=== PATIENT | male | born 1965 | race Caucasian/White ===

== ENCOUNTER 2024-05-27 02:29 | Inpatient (IN) | payer BC, SELFPAY ==
[2024-05-26 23:06] VITALS: BP 139/90
[2024-05-26 23:08] VITALS: BP 130/90
--- NOTE | 2024-05-26 23:11 | ED.GENMED ---
History of Present Illness
General
Chief Complaint: Breathing Problem
Source: patient
Exam Limitations: none
Time Seen by Provider: 05/26/24 23:05
Nursing documentation reviewed up to this point in time: agreed with
History of Present Illness
History of Present Illness:
The patient is a 59-year-old man who reports that he underwent a total right shoulder replacement done at [facility] yesterday. He was kept overnight to control his pain. Patient reports that shortly after getting discharged home today,
he experienced shortness of breath. He reports initially he thought it was just it was a mucous plug but then it never got better. Patient reports he is coughing, wheezing and very short of breath. Patient reports he was intubated during the
procedure yesterday. He denies chest pain, calf pain and leg swelling. Patient denies any history of cardiac or lung disease. He reports he is a former smoker.
Past History
Past History
ED Past Medical History: None
ED Past Surgical History: None
Social History
Tobacco: Non-smoker
Alcohol: None
Drug: None
Personal:
Living: with family
Employment: Employed
Family History
Family History: CAD; Negative Diabetes, Hypertension, Early CAD, Asthma or Cancer
Review of Systems
Review of Systems
Allergies reviewed?: Yes
All Other Systems: ROS reviewed and negative except as documented in HPI and ROS
Constitutional: Reports no symptoms
EENT: Reports no symptoms
Respiratory: Reports cough and trouble breathing
ABD/GI: Reports no symptoms
: Reports no symptoms
Musculoskeletal: Reports no symptoms
Skin: Reports no symptoms
Neurological: Reports no symptoms
Endocrine: Reports no symptoms
Hematologic/Lymphatic: Reports no symptoms
Psychiatric: Reports no symptoms
Phy Exam
Physical Exam
Physical Exam:
Physical Exam
General: Patient appears anxious and tachypneic
Neck: supple. no meningeal signs. normal psoterior pharynx
Heart: Tachycardic
Lungs: Tachypneic, decreased breath sounds at bases bilaterally. Occasional wheeze
Abdomen: normal bowel sounds. not tender. no CVAT
Neuro: alert and oriented. no focal neurological deficits
Skin: no rash
Psychiatric: well kept. interactive and cooperative
Extremities: no edema. no calf tenderness. negative homans. good distal pulses
Scores
Heart Failure Risk
Heart Failure Risk Score: Not Applicable
Course
Orders/Labs/Results
Orders:
Orders
05/26/24 23:02
EKG [Electrocardiogram (*1)] Urgent
Reason for Study: Shortness of Breath
05/26/24 23:03
EKG- Treatment ONCE
05/26/24 23:11
CT Chest Pe Study Urgent
Comment:
Reason For Exam: surgery yesterday. SOB hypoxic
05/26/24 23:14
Complete Blood Count/With Diff Urgent
Comprehensive Metabolic Panel Urgent
NT-proBNP Urgent
Troponin I Urgent
05/27/24 01:23
Albuterol Sulfate [Ventolin Nebules] 15 mg INH R NOW STA
Dexamethasone Sod Phosphate [Decadron] 10 mg IV NOW STA
Abnormal Lab Results
05/26/24
23:14
RBC 3.95 L 10^6/uL
(4.70-6.10)
Hgb 11.6 L g/dL
(13.0-18.0)
Hct 33.3 L %
(39.0-52.0)
Abs Immat Gran (auto) 0.1 H 10^3/uL
(0-0.05)
Absolute Monos (auto) 1.2 H 10^3/uL
(0.1-0.6)
Monocytes % 11.9 H %
(1.7-9.3)
Sodium 134 L mmol/L
(135-145)
Chloride 95 L mmol/L
(98-107)
Glucose 106 H mg/dl
(70-99)
05/26/24 23:14
05/26/24 23:14
Vital Signs
Initial and Last Documented VS:
Initial Vital Signs
Pulse Resp BP Pulse Ox
118 30 139/90 79
05/26/24 23:06 05/26/24 23:06 05/26/24 23:06 05/26/24 23:06
Last Documented Vital Signs
Pulse Resp BP Pulse Ox
118 30 139/90 79
05/26/24 23:06 05/26/24 23:06 05/26/24 23:06 05/26/24 23:06
MDM/Problems Addressed
Differential Diagnosis Includes:
Acute pulmonary embolism, aspiration pneumonia, pneumonia
MDM/Problems Addressed:
Patient presents with acute shortness of breath, tachycardia and hypoxia
Chronic conditions affecting care: HTN
Acute Exacerbation and/or Progression of Chronic Illness:
Is acutely hypertensive, likely due to feeling short of breath
*Radiology
Radiology exam reviewed: radiology read reviewed
*Pulse Oximetry
Patient hypoxic: yes
*EKG
Interpreted by ED Provider?: Yes
Interpretation: abnormal
Comparison EKG: no changes
Rate: tachycardiac
Rhythm: sinus
[place]: normal axis
Interval: normal interval
QRS Pattern: normal QRS
Ischemia: non-specific ST changes
*Auditor Appraiser Interpretation
Rate: tachycardiac
Interpretation: abnormal
Rhythm: sinus
*Critical Care Note
Total Time (30-74mins, 75-104mins- exclusive of procedures): 35 minutes
comment:
35 minutes critical care given to the patient including reassessing his respiratory effort, lung sounds, tachycardia, reviewing his lab work and CT report as well as counseling the patient and his
Update Note
Update Note:
Patient is audibly more wheezy. I suspect aspiration pneumonitis or bronchospasm. There is no infiltrate on the patient's chest x-ray nor sign of PE.
ED Attending Note
-
Portions of this chart may have been created with voice recognition software.� Occasional wrong word or��sound alike� substitutions may have occurred due to the inherent limitations of voice recognition software.
Discharge Plan
Departure
Patient Disposition: Admit
Date of Disposition: 05/27/24
Time of Disposition:
Admit to: Telemetry
Presentation/result/management discussed w/ accepting MD/DO: Hospitalist
Patient with high blood pressure during this ER visit?: Yes
Condition: Fair
Covid-19: Not Applicable
Discharge Problem:
Acute hypoxic respiratory distress
Prescriptions:
No Action
multivitamin [Oyo-Bkrxnn-Laanx] 1 EACH tablet
1 ea PO DAILY
fenofibrate nanocrystallized 145 MG tablet
145 mg PO DAILY
valsartan [Diovan] 160 MG capsule
160 mg PO DAILY
atorvastatin 20 MG tablet
20 mg PO HS
Patient Comments:
02/20/17 Per pharmay this is half a tablet (10mg) daily but hes been taking a whole tablet
cetirizine 10 MG tablet
10 mg PO DAILYPRN PRN (Reason: allergies)
meclizine 25 MG tablet
25 mg PO TIDPRN PRN (Reason: vertigo)
labetalol 100 MG tablet
100 mg PO BID
duloxetine 30 MG capsule,delayed release(DR/EC)
30 mg PO BID
tamsulosin 0.4 MG capsule
0.4 mg PO HS
diphenhydramine HCl 25 MG strip
25 mg PO HS PRN (Reason: sleep)
ondansetron HCl 4 MG tablet
4 mg sublingual Q6H PRN (Reason: nausea)
sumatriptan succinate 50 MG tablet
50 mg PO DAILY PRN (Reason: migraine)
acetaminophen [Tylenol Arthritis Pain] 650 MG tablet extended release
1,300 mg PO Q8H PRN (Reason: pain)
ascorbic acid (vitamin C) [Vitamin C] 500 MG tablet
500 mg PO DAILY
omeprazole-sodium bicarbonate [Zegerid] 1 EACH capsule
2 cap PO
cephalexin 500 MG capsule
500 mg PO QID 4 Days 0RF
oxycodone-acetaminophen 5 MG/325 MG tablet
2 tab PO Q6HPRN PRN (Reason: pain) 14 Days 0RF
Rx Instructions:
Take 2 tablets four times a day, every 6 hours for pain
diazepam [Valium] 10 MG tablet
5 mg PO TID 14 Days Qty: 40 0RF
Referrals:
Jen Mohamud MD [Family Provider] -
Discharge Date and Time
Print Language: PASHTO
[2024-05-26 23:29] LABS: % Basophils 0.7 % (0-2); % Eosinophils 2.9 % (0-6); % Immature Granulocytes 0.5 % (0-0.5); % Lymphocytes 22.3 % (20.5-51.1); % Monocytes 11.9 % (1.7-9.3); % Neutrophils 61.7 % (42.2-75.2); Absolute Basophils 0.1 10^3/uL (0-0.2); Absolute Eosinophils 0.3 10^3/uL (0-0.7); Absolute Immature Granulocytes 0.1 10^3/uL (0-0.05); Absolute Lymphocytes 2.3 10^3/uL (1.2-3.4); Absolute Monocytes 1.2 10^3/uL (0.1-0.6); Absolute Neutrophils 6.3 10^3/uL (1.4-6.5); Hematocrit 33.3 % (39.0-52.0); Hemoglobin 11.6 g/dL (13.0-18.0); Mean Corp Hgb Conc. 34.8 g/dL (33.0-37.0); Mean Corpuscular Hgb 29.4 pg (27.0-31.0); Mean Corpuscular Volume 84.3 fL (80.0-94.0); Mean Platelet Volume 9.6 fL (7.4-10.4); Nucleated Red Blood Cells % 0 % (-); Platelet Count 222 10^3/uL (130-400); Red Blood Cell Count 3.95 10^6/uL (4.70-6.10); Red Cell Dist. Width 14.3 % (11.5-14.5); White Blood Cell Count 10.1 10^3/uL (4.8-10.8)
[2024-05-26 23:37] LABS: ALT (SGPT) 29 U/L (0-50); AST (SGOT) 38 U/L (17-59); Albumin 4.6 g/dl (3.5-5.0); Alkaline Phosphatase 75 U/L (38-126); Blood Urea Nitrogen 18 mg/dl (9-20); Calcium 9.3 mg/dl (8.4-10.2); Carbon Dioxide 26 mmol/L (22-30); Chloride 95 mmol/L (98-107); Glucose 106 mg/dl (70-99); Potassium 4.2 mmol/L (3.5-5.1); Sodium 134 mmol/L (135-145); Total Bilirubin 0.6 mg/dl (0.2-1.3); Total Protein 6.7 g/dl (6.3-8.2); eGFR > 60.00
[2024-05-26 23:45] LABS: NT-proBNP 191 pg/ml; Troponin I < 0.012 ng/ml
[2024-05-27] VITALS (9 sets, daily range): BP systolic 128–163; BP diastolic 74–96; BMI 34.7
[2024-05-27] MEDS: DECADRON 10 MG IV (01:50)
[2024-05-27] MEDS: VENTOLIN NEBULES 15 MG INH (01:51)
--- NOTE | 2024-05-27 02:24 | HPS.HSE ---
Family Physician
-
Family Physician: Jen Mohamud
Chief Complaint
-
Shortness of breath
History of Present Illness
This is a 59-year-old male who has a past medical history of hypertension, obesity, GERD and BPH presenting to the emergency department 1-1/2 days after shoulder surgery for acute onset dyspnea on exertion and shortness of breath.
Patient reported being in usual state of health prior to surgery. Did not sleep well prior to his surgery. He had a surgery on Thursday on the right shoulder at [facility]. He is status post total right shoulder arthroplasty.
Patient reported the surgery was uneventful. He did have full anesthesia for the procedure. The patient stayed overnight without any difficulties and was started on aspirin 81 mg twice daily for DVT prophylaxis. Other than routine pain
medications at the send he denied any other new medications.
Patient reported started to feel short of breath on arrival home. Symptoms became much worse on the afternoon of the following day. He reported dyspnea on exertion, wheezing and a nonproductive cough. He denied orthopnea or PND. He denies any
lower extremity swelling. He denies any calf tenderness. He denied chest pain palpitations lightheadedness or dizziness. He denied any worsening of his GERD. He denies any new rash.
Patient reports he is a former smoker who quit in 2006. Denies any prior history of asthma. Denies prior history of COPD.
On arrival in the emergency department the patient was afebrile, he was hemodynamically stable with a blood pressure 140/90 however he was tachypneic to 38 with a initial pulse ox of 80%. ECG showed sinus rhythm at a rate of 99 without any acute
ST-T wave changes. Troponin negative. He had a CT PE study immediately which showed no central PE but bilateral atelectasis with a large area of atelectasis in the right lower lobe.
Medical History
Past Medical History
Past Medical History: Reports GERD and HTN
Additional Past Medical History:
BPH
Past Surgical History: Reports Orthopedic (Status post right total shoulder arthroplasty, history of and all Arnold Chiari malformation status post craniectomy, history of L2-L4 laminectomy and fusion)
Social History
Tobacco: Former Smoker
Alcohol: Occasional
Drug: None
Personal:
Living: With Family
Employment: Employed
Family History
Family History: Not pertinent
Allergies / Home Medications
Allergies reflects when Allergies were last updated in [employer].
Home Medications with original date entered in [employer]
Allergy/Medication List:
Allergies
Allergy/AdvReac Type Severity Reaction Status Date / Time
codeine Allergy nausea Verified 06/10/17 08:34
nka Allergy NAUSEA Uncoded 06/10/17 13:38
WITH
CODEINE
Home Medications
valsartan 160 mg capsule (Diovan) 160 mg PO DAILY 02/20/17
tamsulosin 0.4 mg capsule 0.4 mg PO HS 02/21/17
Review of Systems
-
History Source: Patient
Constitutional: Reports No Symptoms
EENT: Reports No Symptoms
Respiratory: Reports Cough and Trouble Breathing
Cardiac: Reports No Symptoms
Abdomen/GI: Reports No Symptoms
: Reports No Symptoms
Musculoskeletal: Reports No Symptoms
Neurological: Reports No Symptoms
Endocrine: Reports No Symptoms
Hematologic/Lymphatic: Reports No Symptoms
Psych: Reports No Symptoms
Physical Exam
Vital Signs
Vital Signs
Pulse Resp BP Pulse Ox
118 30 139/90 79
05/26/24 23:06 05/26/24 23:06 05/26/24 23:06 05/26/24 23:06
Physical Exam
General: Well Developed, Well Nourished and Respiratory Distress
HEENT: NormoCephalic, Anicteric, Moist mucous membranes and Atraumatic
Respiratory: Wheezes and Accessory Resp Muscle Use
Cardiac: S1/S2, Regular Rhythm and Tachycardia
Breast: Deferred by me
GI: Soft, Non Tender and Non Distended
Rectal: Deferred by Provider
Genito-urinary: Deferred by me
Musculoskeletal: No Clubbing, No Cyanosis and No Edema
Skin: Warm
Neuro: AO x 3
Hematologic/Lymphatic: No Lymphadenopathy
Psych: Calm
Laboratory Results
-
05/26/24 23:14
05/26/24 23:14
Laboratory Results
Total Bilirubin 0.6 mg/dl (0.2-1.3) 05/26/24 23:14
AST 38 U/L (17-59) 05/26/24 23:14
ALT 29 U/L (0-50) 05/26/24 23:14
Alkaline Phosphatase 75 U/L (38-126) 05/26/24 23:14
Troponin I < 0.012 ng/ml 05/26/24 23:14
Data Reviewed
-
CT Scan: Report Reviewed by me
Medical Tests (Nuc Med, Echo, EKG etc): Image Personally Visualized and interpreted
Lab Data: Labs Reviewed by me
Old Records: Reviewed
Impression/Plan
-
IMPRESSION:
59-year-old with history of hypertension, BPH and GERD who presents to the emergency department postop day #2 status post right total shoulder arthroplasty with wheezing shortness of breath and hypoxia.
PLAN:
1.Hypoxic respiratory distress -acute hypoxic respiratory distress with significant reactive airways component and bilateral atelectasis with large years right lower lobe atelectasis suggestive of possible aspiration. Patient without history of
asthma and no known history of COPD. No current smoker. Only new exposure is aspirin but patient had been on aspirin in the past without any reactive components. No fevers leukocytosis. No obvious consolidation per CT scan. No PE on the CT scan.
- admit to med/surg for acute asthmatic bronchitis 2/2 aspiration
- start solumedrol 40mg q 12
- albuterol q 3 hours prn and duonebs q 6 standing
- cough suppression and antiemetics
- oxygen to keep sat > 93% and to reduce work of breathing.
- start abx if febrile or worsening hypoxia
- incentive spirometry
- no h/o jeremias
- rule out covid 19
2. HTN - Hemodynamically stable.
- continue valsartan
3. GERD
- ppi iv ppx
4. BPH
- continue tamsulosin
5. Shoulder surgery
- maintain sling
- pain control
- outpatient f/u
DVT PPX - lovenox sq
Code Status - Full
[2024-05-27 07:24] LABS: COVID-19 Antigen Negative (Negative)
[2024-05-27] MEDS: DIOVAN 160 MG PO (07:28)
[2024-05-27] MEDS: PROTONIX IV 40 MG IV (07:29)
[2024-05-27] MEDS: NSS (PRESERVATIVE FREE) 10 ML IV (07:30)
[2024-05-27] MEDS: DUONEB 3 ML INH ×4 (07:30→19:10)
[2024-05-27] MEDS: MORPHINE SULFATE 2 MG IV (08:59)
--- NOTE | 2024-05-27 09:32 | W.PN.HOSP.TC ---
Today's Communication/Plan
-
Pulmonary consult. Resume pain control.
Assessment / Plan
Assessment / Plan
Physical Exam
General: Acutely ill but no respiratory Distress or distress due to right shoulder postop
HEENT: NormoCephalic, Anicteric, Moist mucous membranes and Atraumatic
Respiratory: Wheezes and Accessory Resp Muscle Use
Cardiac: S1/S2, Regular Rhythm and Tachycardia
Breast: Deferred by me
GI: Soft, Non Tender and Non Distended
Rectal: Deferred by Provider
Genito-urinary: Deferred by me
Musculoskeletal: Right postop shoulder findings. No Clubbing, No Cyanosis and No Edema
Skin: Warm
Neuro: AO x 3
Hematologic/Lymphatic: No Lymphadenopathy
Psych: Calm
A/P:
1.Hypoxic respiratory distress -acute hypoxic respiratory distress with significant reactive airways component and bilateral atelectasis with large years right lower lobe atelectasis suggestive of possible aspiration. Patient without history of
asthma and no known history of COPD. No current smoker. Only new exposure is aspirin but patient had been on aspirin in the past without any reactive components. No fevers leukocytosis. No obvious consolidation per CT scan. No PE on the CT scan.
-Etiology likely atelectasis in the setting of recent surgery. Pulmonary consulted. Discontinue IV steroids. Considering antibiotics but after discussion with patient he would like to hold off.
- albuterol q 3 hours prn and duonebs q 6 standing
- cough suppression and antiemetics
- oxygen to keep sat > 93% and to reduce work of breathing.
- start abx if febrile or worsening hypoxia
- incentive spirometry
- no h/o jeremias
- rule out covid 19
2. HTN - Hemodynamically stable.
- continue valsartan
3. GERD
- ppi iv ppx
4. BPH
- continue tamsulosin
5. Recent shoulder surgery
- maintain sling
- pain control not sufficient so placed him back on his home regimen and will reevaluate. Also start bowel regimen.
- outpatient f/u
DVT PPX - lovenox sq
Code Status - Full
Total time spent on today's encounter was 52 minutes which included time spent in counseling the patient/family regarding diagnosis and treatment plan as listed above, goals of care, and symptom management. Case was discussed with nursing staff,
specialists, and care coordinators/case management. All labs and imaging personally reviewed by me. Remainder the time spent in detailed review of previous records, lab data, imaging, and other medical provider documentation.
Anticipated Discharge: 24 - 48 hours
Subjective/Interval History
-
Date of Service: May 27, 2024
Patient with less shortness of breath. Still requiring oxygen. No chest pain.
Objective Data
-
Labs:
Laboratory Results
05/26/24
23:14
WBC 10.1
Hgb 11.6 L
Hct 33.3 L
Plt Count 222
Sodium 134 L
Potassium 4.2
Chloride 95 L
Carbon Dioxide 26
BUN 18
Creatinine 1.0
Glucose 106 H
Calcium 9.3
Total Bilirubin 0.6
AST 38
ALT 29
Alkaline Phosphatase 75
Vital Signs:
Vital Signs
Pulse Resp BP Pulse Ox
107 17 144/96 95
05/27/24 09:00 05/27/24 09:00 05/27/24 09:00 05/27/24 09:00
--- NOTE | 2024-05-27 10:23 | CON.PUL ---
Consultation
Consultation Request
Date/Time Consultation Requested: 05/27/2024-9:30 AM
Date/Time Consultation Performed: 05/27/2024-10 AM
Requesting Provider: Hospitalist
Performing Provider: Dr. Moy
Reason for Consultation: Shortness of breath
Medical History
-
Chief Complaint: Shortness of breath
History of Present Illness:
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 He feels
improved on oxygen in the emergency room. He states that he had surgery and went home and had fairly sudden onset shortness of breath, dyspnea exertion with climbing stairs, and had expected right shoulder pain and swelling. He did not have any
lower extremity swelling. He lied down in bed and immediately had severe shortness of breath and thought about calling 911. He drove to the emergency room because his pulse ox was 73% at home. He checked a pulse ox on his it was 99%. He
also had some tachycardia. He currently denies any chest pain, chest tightness, wheezing, pleurisy, chest congestion, productive cough, reflux, abdominal pain or leg swelling. Denies a history of obstructive sleep apnea.
Past Medical History
Past Medical History: None (Hypertension. GERD. BPH. Former [id number]-year quit 2006. Obesity. Right shoulder arthroplasty. Arnold Chiari malformation status post craniectomy. L2-L5 laminectomy and fusion.)
Social History
Tobacco: Former Smoker ([id number] quit 2006)
Alcohol: Occasional
Drug: None
Personal:
Living: With Family
Occupational Exposures: No known asbestos exposure
Environmental Exposures: No known tuberculosis exposure
Family History
Family History: Reviewed & Not Pertinent
Allergies / Home Medications
Allergies
Allergy/AdvReac Type Severity Reaction Status Date / Time
codeine Allergy nausea Verified 06/10/17 08:34
nka Allergy NAUSEA Uncoded 06/10/17 13:38
WITH
CODEINE
Home Medications
�Medication �Instructions �Recorded �Confirmed �Last Taken �Type
atorvastatin 20 mg tablet 20 mg PO HS 02/20/17 05/27/24 06/09/17 19:00 History
cetirizine 10 mg tablet 10 mg PO DAILYPRN PRN allergies 02/20/17 05/27/24 06/08/17 09:00 History
meclizine 25 mg tablet 25 mg PO DAILYPRN PRN vertigo 02/20/17 05/27/24 06/07/17 History
tamsulosin 0.4 mg capsule 0.4 mg PO HS 02/21/17 05/27/24 06/09/17 19:00 History
acetaminophen 650 mg 1,300 mg PO Q8H pain 06/02/17 05/27/24 06/09/17 16:00 History
tablet,extended release (Tylenol
Arthritis Pain)
ascorbic acid (vitamin C) 500 mg 500 mg PO DAILY 06/02/17 05/27/24 06/03/17 09:00 History
tablet (Vitamin C)
amlodipine 10 mg tablet 10 mg PO NOON 05/27/24 05/27/24 Unknown History
aspirin 81 mg chewable tablet 81 mg PO BID 05/27/24 05/27/24 Unknown History
bupropion HCl 150 mg 24 hr tablet, 150 mg PO DAILY 05/27/24 05/27/24 Unknown History
extended release
cyclobenzaprine 10 mg tablet 10 mg PO HS 05/27/24 05/27/24 Unknown History
duloxetine 60 mg capsule,delayed 60 mg PO DAILY 05/27/24 05/27/24 Unknown History
release
famotidine 20 mg tablet (Pepcid) 20 mg PO BID 05/27/24 05/27/24 Unknown History
ibuprofen 200 mg tablet 600 mg PO Q6H 05/27/24 05/27/24 Unknown History
nxyaxwua-xhl-gugmb acid 0.4 1 tab PO DAILY 05/27/24 05/27/24 Unknown History
mg-lycopene 300 mcg-lutein 250 mcg
tablet (Centrum Silver)
omega 8-sea-ugb-fish oil 1,000 mg 1 cap PO TID 05/27/24 05/27/24 Unknown History
(120 mg-180 mg) capsule (Fish Oil)
omeprazole 20 mg-sodium 1 cap PO BID 05/27/24 05/27/24 Unknown History
bicarbonate 1.1 gram capsule
(Zegerid OTC)
oxycodone-acetaminophen 7.5 mg-325 1 tab PO BIDPRN PRN moderate pain 05/27/24 05/27/24 Unknown History
mg tablet
pregabalin 150 mg capsule 150 mg PO TID 05/27/24 05/27/24 Unknown History
sennosides 8.6 mg tablet (senna) 17.2 mg PO BID 05/27/24 05/27/24 Unknown History
valsartan 160 mg tablet 160 mg PO BID 05/27/24 05/27/24 Unknown History
Review of Systems
-
Unable to Obtain full review of systems at this time due to: Other (Per HPI)
Vitals / Labs / Diagnostic Testing
Vital Signs
Pulse Resp BP Pulse Ox
107 17 144/96 95
05/27/24 09:00 05/27/24 09:00 05/27/24 09:00 05/27/24 09:00
Lab Data
05/26/24 23:14
05/26/24 23:14
Diagnostic Testing:
Physical Exam
-
Exam:
Well-nourished and well-developed in no apparent distress
HEENT-atraumatic, normocephalic
Neck-supple, no JVD, no bruit
Heart-regular rate and rhythm-, no murmurs rubs or gallops, no increased P2 or RV heave
Chest-clear to auscultation, no wheezes, crackles
Back-no tenderness
Abdomen-soft, nontender, nondistended, no hepatosplenomegaly
Extremities-no cyanosis, clubbing, edema and good peripheral pulses, negative Homans' sign
Integument-intact, no rashes, lesions or ecchymosis
Neurology-alert and oriented, nonfocal motor and sensory exam
Assessment
-
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
Acute hypoxemia possibly related to reactive airway/asthma with basilar atelectasis-negative PE, no history of asthma
Recent right shoulder arthroplasty
Mild panxod-omrwfdknzo-yubvlqesdf 11.6
Mild hyperglycemia
Conditions present prior to admission:
Hypertension.
GERD.
BPH.
Former pwdhzr-99-wuwm-year quit 2006.
Obesity.
Right shoulder arthroplasty.
Arnold Chiari malformation status post craniectomy. L2-L5 laminectomy and fusion.
Plan
Respiratory decompensation likely related to atelectasis of and possibly underlying reactive airway/asthma exacerbation
Supplemental oxygen as needed
Incentive spirometry
Nebulizers
Solu-Medrol initiated
Mucus clearing devices
Consider CPAP temporarily to help with tracheobronchial tree stenting/atelectasis-could be worked up for sleep apnea as an outpatient
Aspiration precautions
Follow-up radiographically to ensure atelectasis and elevated hemidiaphragm resolved
Analgesia per primary service-requesting Percocet and morphine
DVT prophylaxis-on Lovenox
Early nutrition
Early mobilization
Reviewed with nursing
Consider outpatient sleep apnea evaluation
Diagnostic data:
Chest x-ray 12/20/2008-NAD
CT chest 05/26/2024-no central pulmonary emboli, very low lung volumes, partial atelectasis right lower lobe and right middle lobe, moderate elevation right hemidiaphragm
Data Reviewed
-
EKG: Report reviewed by me
Radiology: Image personally visualized and interpreted and Report reviewed by me
CT Scan: Report reviewed by me
Medical Tests (Nuc Med, Echo etc): Report reviewed by me
Labs: Labs reviewed by me
Old Records: Reviewed
Total Time Spent with Patient (in minutes): 65
[2024-05-27] MEDS: PERCOCET 5/325 1 TABLET PO (11:34)
[2024-05-27] MEDS: NORVASC 10 MG PO (12:15)
[2024-05-27] MEDS: SOLU-MEDROL PF 40 MG IV (13:48)
[2024-05-27] MEDS: WELLBUTRIN XL (24 hour extended release) 150 MG PO (14:33)
[2024-05-27] MEDS: CYMBALTA DELAYED RELEASE 60 MG PO (14:33)
[2024-05-27] MEDS: MIRALAX 17 GRAMS PO (14:35)
[2024-05-27] MEDS: SENOKOT-S 1 TABLET PO ×2 (14:35→20:17)
[2024-05-27] MEDS: TYLENOL 325 MG PO ×2 (15:46→21:31)
[2024-05-27] MEDS: ROXICODONE 10 MG PO ×2 (15:50→21:31)
[2024-05-27] MEDS: LYRICA 150 MG PO ×2 (16:49→21:30)
[2024-05-27] MEDS: TYLENOL 650 MG PO (18:32)
[2024-05-27] MEDS: LOVENOX 40 MG SC (18:35)
[2024-05-27] MEDS: PROTONIX 40 MG PO (20:17)
[2024-05-27] MEDS: PEPCID 20 MG PO (20:17)
[2024-05-27] MEDS: LIPITOR 20 MG PO (21:30)
[2024-05-27] MEDS: FLEXERIL 10 MG PO (21:30)
[2024-05-27] MEDS: FLOMAX 0.4 MG PO (21:30)
[2024-05-28] MEDS: TYLENOL 325 MG PO ×2 (06:07→12:16)
[2024-05-28] MEDS: ROXICODONE 10 MG PO ×2 (06:08→12:16)
[2024-05-28] MEDS: DUONEB 3 ML INH (07:23)
[2024-05-28 07:57] VITALS: BP 152/90
[2024-05-28 08:25] LABS: % Basophils 0.2 % (0-2); % Immature Granulocytes 0.6 % (0-0.5); % Lymphocytes 5.4 % (20.5-51.1); % Monocytes 7.7 % (1.7-9.3); % Neutrophils 86.1 % (42.2-75.2); Absolute Immature Granulocytes 0.1 10^3/uL (0-0.05); Absolute Lymphocytes 0.7 10^3/uL (1.2-3.4); Absolute Monocytes 1.1 10^3/uL (0.1-0.6); Absolute Neutrophils 11.7 10^3/uL (1.4-6.5); Hematocrit 31.6 % (39.0-52.0); Hemoglobin 11.4 g/dL (13.0-18.0); Mean Corp Hgb Conc. 36.1 g/dL (33.0-37.0); Mean Corpuscular Hgb 29.8 pg (27.0-31.0); Mean Corpuscular Volume 82.5 fL (80.0-94.0); Mean Platelet Volume 11.5 fL (7.4-10.4); Nucleated Red Blood Cells % 0 % (-); Platelet Count 207 10^3/uL (130-400); Red Blood Cell Count 3.83 10^6/uL (4.70-6.10); Red Cell Dist. Width 14.2 % (11.5-14.5); White Blood Cell Count 13.6 10^3/uL (4.8-10.8)
--- NOTE | 2024-05-28 08:44 | W.PN.HOSP.TC ---
Today's Communication/Plan
-
Discharge planning today
Assessment / Plan
Assessment / Plan
Physical exam:
General: Well Developed, Well Nourished and No Apparent Distress
HEENT: Normocephalic, Atraumatic and Moist Mucous Membranes
Respiratory: Clear to Auscultation; Negative Wheezes, Rales or Rhonchi
Cardiac: Regular Rhythm and S1/S2
GI: Soft, Nontender and Nondistended
Musculoskeletal: Right shoulder sling. No Clubbing, No Cyanosis and No Edema
Neuro: Awake, Alert and Oriented
Psych: Calm
A/P:
1.hypoxia related to prior shoulder surgery--> back on room air after incentive spirometry and mobilization with PT. Appreciate pulmonary input
2. HTN -continue home meds
3. GERD-continue home right
4. BPH-Home regimen
5. Recent shoulder surgery-continue outpatient pain control
6. Hyperkalemia from hemolysis-repeated potassium and without any variations to potassium back to normal at 3.9
7. Hyponatremia-resolved
8. Fhexpk-oppjin-rd as outpatient. No signs of bleeding
DVT PPX - lovenox sq
Code Status - Full
Anticipated Discharge: Today
Subjective/Interval History
-
Date of Service: May 28, 2024
Patient doing well today. Back to room air today since last evening. No chest pain or shortness of breath
Objective Data
-
Labs:
Laboratory Results
05/28/24
06:00
WBC 13.6 H
Hgb 11.4 L
Hct 31.6 L
Plt Count 207
Sodium Pending
Potassium Pending
Chloride Pending
Carbon Dioxide Pending
BUN Pending
Creatinine Pending
Glucose Pending
Calcium Pending
Vital Signs:
Vital Signs
Temp Pulse Resp BP Pulse Ox
98.3 F 101 18 152/90 96
05/28/24 07:57 05/28/24 07:57 05/28/24 07:57 05/28/24 07:57 05/28/24 07:57
I&O
05/27/24 05/28/24 05/29/24
06:59 06:59 06:59
Intake Total 0 / 0
Balance 0 / 0
[2024-05-28 08:59] LABS: Blood Urea Nitrogen 15 mg/dl (9-20); Calcium 9.4 mg/dl (8.4-10.2); Carbon Dioxide 17 mmol/L (22-30); Chloride 105 mmol/L (98-107); Estimated Creatinine Clearance > 125 ml/min; Glucose 107 mg/dl (70-99); Potassium 5.7 mmol/L (3.5-5.1); Sodium 140 mmol/L (135-145); eGFR > 60.00
[2024-05-28 09:36] VITALS: BP 155/94; PULSE 109; O2SAT 97
--- NOTE | 2024-05-28 09:48 | PTOTSP ---
Patient presents S/P R TSA with subsequent SOB after DC from that procedure. Patient is feeling better today in regards to symptoms. He demonstrates I with all functional mobility. He was able to complete a full flight of stairs and curb with
safety. He increased ambulation distance without drop in O2 sats afterwards. At this time, patient demonstrates no skilled inpatient needs. Would benefit from OP therapy for shoulder when appropriate orthopedically. Will sign off. Please
reconsult if situation changes.
[2024-05-28] MEDS: CYMBALTA DELAYED RELEASE 60 MG PO (10:00)
[2024-05-28] MEDS: DIOVAN 160 MG PO (10:00)
[2024-05-28] MEDS: MIRALAX PO (10:01)
[2024-05-28] MEDS: LOW STRENGTH ASPIRIN 81 MG PO (10:01)
[2024-05-28] MEDS: PEPCID 20 MG PO (10:01)
[2024-05-28] MEDS: LYRICA 150 MG PO (10:01)
[2024-05-28] MEDS: PROTONIX 40 MG PO (10:02)
[2024-05-28] MEDS: SENOKOT-S 1 TABLET PO (10:02)
[2024-05-28] MEDS: FLUSH (NSS) 1 FLUSH IV (10:02)
[2024-05-28] MEDS: WELLBUTRIN XL (24 hour extended release) 150 MG PO (10:02)
[2024-05-28] MEDS: TYLENOL 650 MG PO (10:08)
[2024-05-28 11:35] LABS: Blood Urea Nitrogen 18 mg/dl (9-20); Calcium 9.3 mg/dl (8.4-10.2); Carbon Dioxide 28 mmol/L (22-30); Chloride 100 mmol/L (98-107); Estimated Creatinine Clearance > 125 ml/min; Glucose 135 mg/dl (70-99); Potassium 3.9 mmol/L (3.5-5.1); Sodium 139 mmol/L (135-145); eGFR > 60.00
--- NOTE | 2024-05-28 11:42 | W.DCSUMMARY ---
Discharge Summary
Discharge Data
Date of Admission: 05/27/24
Date of Discharge: 05/28/24
-
Pending Results: No
Hospital Course
Patient 59 years old male with history of hypertension, obesity, GERD, BPH, recent right shoulder surgery presented to the hospital with shortness of breath and hypoxia. Patient was placed on supplemental oxygen. He had a CTA of the chest no
evidence of PE. Pulmonary consulted. He was placed on supplemental oxygen. Patient was placed on incentive spirometry and physical therapy evaluated the patient. Initially placed on steroids but discontinued. There was also some discussions
about antibiotics but he did not require such. Patient did well rest of hospital stay. He was able to come off oxygen and oxygenating well on room air. He is afebrile and hemodynamically stable. He feels back to his baseline and eager to go home
today. He is going to be discharged in relatively stable condition today.
Discharge duration: 35 minutes
Discharge Plan
-
Patient Disposition: Home (Routine Discharge)
Discharge Diagnosis/Procedures: Hypoxia likely related to atelectasis. Recent shoulder surgery.
Diet: Low Cholesterol
Activity: As tolerated
Blood Work: Please PCP to order CBC, BMP within 1 week
Referrals:
Jen Mohamud MD [Family Provider] - in less than 1 week
Adi Moy MD [Active] - in two to four weeks
Prescriptions:
Continued
atorvastatin 20 MG tablet
20 mg PO HS
Patient Comments:
02/20/17 Per pharmay this is half a tablet (10mg) daily but hes been taking a whole tablet
cetirizine 10 MG tablet
10 mg PO DAILYPRN PRN (Reason: allergies)
meclizine 25 MG tablet
25 mg PO DAILYPRN PRN (Reason: vertigo)
tamsulosin 0.4 MG capsule
0.4 mg PO HS
acetaminophen [Tylenol Arthritis Pain] 650 MG tablet extended release
1,300 mg PO Q8H
ascorbic acid (vitamin C) [Vitamin C] 500 MG tablet
500 mg PO DAILY
cyclobenzaprine 10 mg Tablet
10 mg PO HS
sennosides [senna] 8.6 mg Tablet
17.2 mg PO BID
famotidine [Pepcid] 20 mg Tablet
20 mg PO BID
amlodipine 10 mg Tablet
10 mg PO NOON
ibuprofen 200 mg Tablet
600 mg PO Q6H
aspirin 81 mg Tablet,Chewable
81 mg PO BID
valsartan 160 mg Tablet
160 mg PO BID
bupropion HCl 150 mg Tablet Extended Release 24 Hr
150 mg PO DAILY
duloxetine 60 mg Capsule,Delayed Release(Dr/Ec)
60 mg PO DAILY
Centrum Silver 0.4 mg-300 mcg- 250 mcg Tablet
1 tab PO DAILY
pregabalin 150 mg Capsule
150 mg PO TID
omega 8-dms-ias-fish oil [Fish Oil] 1,000 (120-180) mg Capsule
1 cap PO TID
omeprazole-sodium bicarbonate [Zegerid OTC] 20-1.1 mg-gram Capsule
1 cap PO BID
oxycodone-acetaminophen [Percocet] 10-325 mg Tablet
1 tab PO Q6H PRN (Reason: mod-severe )
Discharge Orders:
Discharge Patient (As Directed); Ordered 05/28/24
Ordered By: Shakeel Bennett
Discharge Date and Time
Discharge Date/Time: 05/28/24 15:42
Print Language: GIBRALTARIAN
[2024-05-28] MEDS: DUONEB INH (11:58)
[2024-05-28] MEDS: NORVASC 10 MG PO (12:16)
--- NOTE | 2024-05-28 15:26 | PTCARENOTE ---
Pt left hospital without discharge paperwork. Left 2 messages on pt's voicemail requesting to go over paperwork with pt either over the phone and or if he could come back to the hospital to pickup paperwork. Will mail discharge paperwork to pt. Pt
has not responded to voicemails.
== END 2024-05-28 15:42 | disposition home or self-care (01) | DRG 206 ==
LOC: 4 EAST ACU 02:29
PROVIDERS: ADMITTING PHYSICIAN Internal Medicine; ATTENDING PHYSICIAN Hospitalist; CONSULT PHYSICIAN Internal Medicine Critical Care Medicine; EMERGENCY PHYSICIAN Emergency Medicine; FAMILY PHYSICIAN Internal Medicine
DX: J95.89 Other postprocedural complications and disorders of respiratory system, not elsewhere classified (principal); J98.11 Atelectasis; J45.901 Unspecified asthma with (acute) exacerbation; E87.1 Hypo-osmolality and hyponatremia; R06.03 Acute respiratory distress; R09.02 Hypoxemia; E87.5 Hyperkalemia; I10 Essential (primary) hypertension; D64.9 Anemia, unspecified; R73.9 Hyperglycemia, unspecified; E66.9 Obesity, unspecified; K21.9 Gastro-esophageal reflux disease without esophagitis; N40.0 Benign prostatic hyperplasia without lower urinary tract symptoms; Y84.8 Other medical procedures as the cause of abnormal reaction of the patient, or of later complication, without mention of misadventure at the time of the procedure; Y92.9 Unspecified place or not applicable; Q07.00 Arnold-Chiari syndrome without spina bifida or hydrocephalus; Z88.5 Allergy status to narcotic agent; Z96.611 Presence of right artificial shoulder joint; Z87.891 Personal history of nicotine dependence; Z82.49 Family history of ischemic heart disease and other diseases of the circulatory system
CPT/HCPCS: 71275; 80048; 80053; 83880; 84484; 85025; 87811; 93005; 94640; 96374; 97116; 97161; 99291; Q9967

== ENCOUNTER → 2024-11-15 17:54 | Outpatient (REF) | payer BC, SELFPAY | LOC: MRI 17:54 | PROVIDERS: ATTENDING PHYSICIAN Physician Assistant Medical; FAMILY PHYSICIAN Internal Medicine | DX: M54.50 Low back pain, unspecified (principal); Z98.1 Arthrodesis status; M54.16 Radiculopathy, lumbar region; M51.26 Other intervertebral disc displacement, lumbar region | CPT/HCPCS: 72148 ==

== ENCOUNTER → 2025-01-29 12:11 | Outpatient (REF) | payer BC, SELFPAY | LOC: PAVMRI 12:11 | PROVIDERS: ATTENDING PHYSICIAN Orthopaedic Surgery Orthopaedic Surgery of the Spine; FAMILY PHYSICIAN Internal Medicine | DX: M48.02 Spinal stenosis, cervical region (principal) | CPT/HCPCS: 72141 ==

== ENCOUNTER → 2025-02-01 13:36 | Outpatient (REF) | payer BC, SELFPAY | LOC: HWRAD 13:36 | PROVIDERS: ATTENDING PHYSICIAN Physician Assistant Medical; FAMILY PHYSICIAN Internal Medicine | DX: M54.16 Radiculopathy, lumbar region (principal); M54.12 Radiculopathy, cervical region | CPT/HCPCS: 72050; 72110 ==

== ENCOUNTER → 2025-03-25 10:28 | Outpatient (REF) | payer SELFPAY | LOC: RAD 10:28 | PROVIDERS: ATTENDING PHYSICIAN Nurse Practitioner Acute Care; FAMILY PHYSICIAN Internal Medicine | DX: M54.2 Cervicalgia (principal) | CPT/HCPCS: 72040 ==

== ENCOUNTER → 2025-06-03 11:16 | Outpatient (REF) | payer OTHER, SELFPAY | LOC: RAD 11:16 | PROVIDERS: ATTENDING PHYSICIAN Physician Assistant Medical; FAMILY PHYSICIAN Internal Medicine | DX: M54.12 Radiculopathy, cervical region (principal) | CPT/HCPCS: 72040 ==

== ENCOUNTER 2025-06-19 18:15 | Inpatient (IN) | payer OTHER, SELFPAY ==
[2025-06-19 12:54] VITALS: BP 153/105
--- NOTE | 2025-06-19 13:16 | ED.CVA ---
History of Present Illness
General
Chief Complaint: CVA/TIA Symptoms
Source: patient
Time Seen by Provider: 06/19/25 13:15
Nursing documentation reviewed up to this point in time: agreed with
Onset of Stroke Symptoms
Onset of symptoms known: No
Time pt last seen normal is known: No
History of Present Illness
History of Present Illness:
Note:
CHIEF COMPLAINT(S)
Headache, coordination issues, difficulty with typing, episodic vertigo, and feeling off balance.
HISTORY OF PRESENT ILLNESS
The patient is a 60-year-old male with a history of hypertension, hyperlipidemia, a prior lumbar fusion, and multiple neurosurgical interventions. The patient presented with a persistent headache and a sensation of feeling 'off' for the past few
days. He reported experiencing difficulties with coordination, tripping multiple times over the weekend, and a particular struggle with typing due to his left hand not functioning properly. He also described visual disturbances that included seeing
double at one point.
The headache started four days ago and has been localized to the back of the head since onset. This morning, the patient experienced an acute episode of vertigo different from the usual episodic vertigo he has had for many years. Upon awakening, the
patient noted his movements were unsteady, requiring him to hold onto furniture to move around. He took 50 mg of Meclizine, which helped temporarily alleviate his symptoms for a short time.
The patient has a background of chronic numbness in certain fingers due to spinal issues, which underwent corrective surgery earlier this year. He mentioned a history of Arnold-Chiari malformation decompressed in 2014, along with cervical spine
fusion surgeries.
PAST MEDICAL AND SURGICAL HISTORY
- Hypertension
- Hyperlipidemia
- Cervical spine issues that resulted in anterior discectomy and fusion at C5-6 and C6-7
- Arnold-Chiari malformation decompressed in 2014 with a suboccipital craniectomy and C1 laminectomy
- Lumbar fusion (details not specified)
- Melanoma (initial suspicion, later determined to be another condition eight years ago)
CHRONIC MEDICAL CONDITIONS SIGNIFICANTLY AFFECTING CARE
- Hypertension
- Hyperlipidemia
- Post-op recovery from cervical spine surgeries
- Chronic numbness and coordination issues post-surgery
PHYSICAL EXAM
General: Alert, no acute distress.
Skin: Warm, dry.
Head: Normocephalic, atraumatic.
Neck: Supple, trachea midline.
Eyes, ears, nose, mouth, and throat: Oral mucosa moist. Coordination issues noted during neurological check.
Cardiovascular: Normal peripheral perfusion, no edema.
Respiratory: Respirations are non-labored.
Gastrointestinal: Abdomen nondistended.
Back: Normal range of motion, normal alignment.
Musculoskeletal: Normal ROM, normal strength but noted difficulty with tasks requiring coordination.
Neurological: Alert and oriented to person, place, time, and situation; coordination deficits noted.
Psychiatric: Cooperative, appropriate mood & affect.
PROBLEM LIST
Acute:
- Headache
- Coordination difficulties
- Visual disturbances
Chronic:
- Hypertension
- Hyperlipidemia
- Post-surgical coordination issues
PLAN
- Consult with Neurology for further evaluation of suspected cerebellar versus posterior cerebral stroke or other neurological concerns.
- Review patients imaging with a radiologist for a more detailed assessment.
- Consider further diagnostic evaluations, such as MRI, if necessary.
DIFFERENTIAL DIAGNOSIS
The Differential Diagnosis includes, in no particular order and is not limited to:
1. Cerebellar stroke
2. Posterior cerebral artery stroke
3. Recurrence or complications of Arnold-Chiari malformation
4. Vestibular disorder
5. Medication side effects
6. Cervical spine pathology related to recent surgeries
7. Multiple sclerosis
8. Peripheral neuropathy
9. Migraine with aura
10. Transient ischemic attack (TIA)
Disposition:
SUMMARY OF ENCOUNTER
The patient presented to the emergency department with complaints of ataxia and double vision. The initial assessment included a CT of the head, which showed no acute findings, and laboratory tests, which revealed no patton abnormalities. The etiology
of the symptoms remains unclear, and the symptoms of ataxia and double vision are concerning. Neurology was consulted in the ED for further evaluation and management recommendations.
DISPOSITION
Admit to hospital for further workup.
MANAGEMENT OF THE PATIENTS CARE WAS DISCUSSED WITH
Neurology was consulted for evaluation of ataxia and double vision.
DIAGNOSIS
Ataxia (R27.0), Diplopia (H53.2)
Past History
Past History
ED Past Medical History: None
ED Past Surgical History: None
Social History
Tobacco: Non-smoker
Alcohol: None
Drug: None
Personal:
Living: with family
Employment: Employed
Family History
Family History: CAD; Negative Diabetes, Hypertension, Early CAD, Asthma or Cancer
Phy Exam
Physical Exam
Physical Exam:
.
Scores
NIH Stroke Score
Level of Consciousness: 0 - Alert
LOC Questions: 0-Answers both correctly
LOC Commands: 0-Performs both correctly
Best Horizontal Gaze: 0-Normal
Visual Serra: 0=Normal, no visual loss
Facial Palsy: 0=Normal, symmetrical
Motor - Right Arm: 0=No drift 10 seconds
Motor - Left Arm: 0=No drift 10 seconds
Motor - Right Le-No drift 5 seconds
Motor - Left Le-No drift 5 seconds
Limb Ataxia: 1-Present in one limb
Sensation: 0-Normal
Best Language: 0-No aphasia
Dysarthria: 0-Normal
Extinction and Inattention: 0-No abnormality
NIH Total Score:: 1
Course
Orders/Labs/Results
Orders:
Orders
06/19/25 13:05
CT Head W/o Iv Contrast Urgent
Comment:
Reason For Exam: left hand numbess, headache
06/19/25 13:22
Alcohol Urgent
C-Reactive Protein Urgent
Comment: ADD ON
Cardiovascular Evaluation Urgent
Comment: ADD ON
Complete Blood Count/With Diff Urgent
Comprehensive Metabolic Panel Urgent
Erythrocyte Sed Rate Urgent
Comment: ADD ON
PTT Urgent
TSH Urgent
Comment: ADD ON
06/19/25 16:03
Alcohol Routine
Lipid Profile [Cardiovascular Evaluation] Routine
Comment: May add to blood work in lab
06/19/25 16:04
CRP [C-Reactive Protein] Routine
Comment: May add to blood in lab
Erythrocyte Sed Rate Routine
Comment: may add to blood in lab
TSH Reflex To Free T4 Routine
Comment: May add to blood in lab
Urine Drug Abuse Screen Routine
Date Specimen was Collected: 06/19/25
Time Specimen was Collected: 16:54
06/19/25 16:11
NEUROLOGY CONSULT Urgent
Consulting Provider: Modesto Eddy
Was physician already notified: Yes
Reason for consult: ataxia, double vision
06/19/25 16:23
CT Head & Neck Angio W/wo IV Routine
Comment:
Reason For Exam: stenosis
06/19/25 16:25
Prochlorperazine [Compazine] 10 mg PO NOW ONE
06/19/25 16:53
Add On- LAB Urgent
Tests Added?: Alcohol, CRP, Lipid profile, sed rate, TSH
06/19/25 18:00
Thiamine HCl [Vitamin B1] 100 mg PO DAILY
Abnormal Lab Results
06/19/25
13:22
Sodium 134 L mmol/L
(135-145)
Glucose 101 H mg/dl
(70-99)
06/19/25 13:22
06/19/25 13:22
Vital Signs
Initial and Last Documented VS:
Initial Vital Signs
Temp Pulse Resp BP Pulse Ox
98 F 90 18 153/105 99
06/19/25 12:54 06/19/25 12:54 06/19/25 12:54 06/19/25 12:54 06/19/25 12:54
Last Documented Vital Signs
Temp Pulse Resp BP Pulse Ox
98 F 98 15 151/84 96
06/19/25 12:54 06/19/25 17:00 06/19/25 17:00 06/19/25 15:00 06/19/25 17:00
*Pulse Oximetry
SaO2: 99
Oxygen Mode of Delivery: Room air
Patient hypoxic: no
*Critical Care Note
Total Time (30-74mins, 75-104mins- exclusive of procedures): Not Applicable
ED Attending Note
-
Portions of this chart may have been created with voice recognition software.� Occasional wrong word or��sound alike� substitutions may have occurred due to the inherent limitations of voice recognition software.
Discharge Plan
Departure
Patient Disposition: Admit
Date of Disposition: 06/19/25
Time of Disposition: 15:38
Admit to: Telemetry
Presentation/result/management discussed w/ accepting MD/DO: Hospitalist
Patient with high blood pressure during this ER visit?: Yes
Condition: Fair
Discharge Problem:
Ataxia, Double vision
Prescriptions:
No Action
tamsulosin 0.4 MG capsule
0.4 mg PO HS
acetaminophen [Tylenol Arthritis Pain] 650 MG tablet extended release
1,300 mg PO Q8HPRN PRN (Reason: mild pain)
ascorbic acid (vitamin C) [Vitamin C] 500 MG tablet
500 mg PO DAILY
famotidine [Pepcid] 20 mg Tablet
20 mg PO HS
amlodipine 10 mg Tablet
10 mg PO NOON
aspirin 81 mg Tablet,Chewable
81 mg PO DAILY
valsartan 160 mg Tablet
160 mg PO BID
duloxetine 60 mg Capsule,Delayed Release(Dr/Ec)
60 mg PO DAILY
atorvastatin [Lipitor] 80 mg Tablet
80 mg PO QPM
tizanidine 4 mg Tablet
4 mg PO HS
Theragen Tablet
1 tab PO DAILY
oxycodone-acetaminophen [Percocet] 7.5-325 mg Tablet
1 tab PO Q6HPRN PRN (Reason: severe pain)
omeprazole-sodium bicarbonate [Zegerid] 40-1.1 mg-gram Capsule
1 cap PO DAILY
docusate sodium [Colace] 100 mg Capsule
100 mg PO HS
Referrals:
Boo Diane I., [Family Provider, Internal Medicine]
Interventions
Interventions:
*Risk Screen - Suicide Last Done: 06/19/25 13:02
*General Assessment Last Done: 06/19/25 13:29
*Neglect/Abuse Screening Last Done: 06/19/25 13:02
*ED- Fall Risk Assessment Last Done: 06/19/25 13:38
*ED COVID-19 Vaccine History Last Done: 06/19/25 13:38
*ED Influenza Vaccine History Last Done: 06/19/25 13:38
ED- Pulmonary Assessment Last Done: 06/19/25 13:37
ED- Neurological Assessment Last Done: 06/19/25 13:35
ED- Cardiac Assessment Last Done: 06/19/25 13:36
Discharge Date and Time
Print Language: WOLOF
[2025-06-19 13:17] VITALS: BP 157/102
[2025-06-19 13:37] LABS: Hematocrit 42.3 % (39.0-52.0); Hemoglobin 14.6 g/dL (13.0-18.0); Mean Corp Hgb Conc. 34.5 g/dL (33.0-37.0); Mean Corpuscular Volume 88.7 fL (80.0-94.0); Nucleated Red Blood Cells % 0 % (-); Platelet Count 276 10^3/uL (130-400); Red Cell Dist. Width 13.2 % (11.5-14.5)
[2025-06-19 13:48] LABS: APTT 26.3 Sec (23.4-35.0)
[2025-06-19 13:54] LABS: ALT (SGPT) 43 U/L (0-50); AST (SGOT) 37 U/L (17-59); Albumin 4.8 g/dl (3.5-5.0); Alkaline Phosphatase 89 U/L (38-126); Blood Urea Nitrogen 17 mg/dl (9-20); Calcium 9.5 mg/dl (8.4-10.2); Carbon Dioxide 28 mmol/L (22-30); Chloride 100 mmol/L (98-107); Estimated Creatinine Clearance > 125 ml/min; Glucose 101 mg/dl (70-99); Potassium 4.3 mmol/L (3.5-5.1); Sodium 134 mmol/L (135-145); Total Protein 7.2 g/dl (6.3-8.2); eGFR > 60.00
[2025-06-19 14:00] VITALS: BP 141/93
[2025-06-19 15:00] VITALS: BP 151/84
--- NOTE | 2025-06-19 15:53 | CON.NEURO ---
Neuro Assessment/Plan
Assessment
Patient presented to this hospital's emergency department with numerous symptoms including cognitive issues in the last 2 weeks and change in headache control with worsening headaches in the last 2 days. Patient also has been reporting issues
including ataxia, numbness, dizziness.
Most likely in light of the patient's prior history of functional neurological disorder in 2017, the symptoms most likely represent migraine with aura and possible somatic overlay.
Presence of lacunar changes in the cerebellum bilaterally may represent prior ischemic injury.
Plan
Check CTA head and neck to determine if there is significant stenosis producing the patient's lacunar changes in the cerebellum
check EtOH, UDS
Check echocardiogram
check blood work for treatable causes
increase Duloxetine from 60 to 90 mg due to the patient's worsening headaches
Provide thiamine
provide Prochlorperazine 10 mg as needed for headache
Consultation
Order
Date of Consultation: 06/19/25
Requesting Provider: Emergency department provider
Reason for Consult: Headache
Subjective/Objective
Subjective Data
Date of Service: June 19, 2025
Adapted from consult in 2017:
'Dictated by: Terry Wang MD
Reason for Consultation: This is a neurology consultation for transient involuntary twitching movements of his extremities without loss of consciousness
Patient is a 51-year-old male who presented to the hospital yesterday with a chief complaint of episodic, transient stiffness and twitching of his extremities. His symptoms started on Thursday, february, when he was urinating while standing
and suddenly felt that his whole body stiffened up and he felt like an electric sensation passed through his whole body. This lasted for about 2 seconds before spontaneously resolving. He reports electric sensation to be originating from his lower
back. Once that evening and then next day, he had another 2 episodes of similar sensations, each one again lasting about 2 seconds. He denies any associated loss of consciousness, tongue bite or frothing from his mouth. Later on, on february,
patient also experienced involuntary twitching sensations in his bilateral lower extremities, followed by both upper extremities which again lasted for a few seconds before spontaneously resolving.
, Patient also began to experience difficulty standing up and walking. Standing up and walking was associated with pain in his lower back. He also complains of increased urinary urgency in the last few days. He denies any urinary or bowel
incontinence however. He denies any focal weakness or numbness in his extremities, difficulty speaking or swallowing, blurred vision, headache or dizziness. He mentions that he has had somewhat similar instances in the past when he was found to have
a Chiari malformation which was surgically treated. He also has had similar symptoms in his lower back and legs for which he has had surgery too. He reports continued difficulty walking at this time.'
Right handed
Patient presented to this hospital with the following symptoms:
2 weeks ago difficulty with thinking, forgot to lock office door. Persistent. Mildly lost with driving.
2 days ago started with headache in back of head with fatigue. Then slept for �16 hours� with persistent headache.
Coordination problem started 1 day ago
Numbness in left hand yesterday into the forearm
Diplopia started today with resolved after 5-10 minutes.
Pins and needle in left arm and leg
Quality of headache: throbbing
Associated symptoms: with usual headaches has vertigo, neck pain, photophobia, nausea
Doesn�t include: any others
Prior headaches not severe since Arnold-Chiari malformation repair
Intensity of headache: 01/24
Prior medications: Duloxetine
Medications for headache rescue: OTC medication, Sumatriptan
SE with medications: Meclizine
Improving factors: Ondansetron, Meclizine
Unchanged by: Butalbital
Also: chronic episodic vertigo
Objective Data
Vital Signs
Temp Pulse Resp BP Pulse Ox
36.6 C 74 14 141/93 91
06/19/25 12:54 06/19/25 14:45 06/19/25 14:45 06/19/25 14:00 06/19/25 14:45
Lab Results
06/19/25 13:22
06/19/25 13:22
APTT 26.3 Sec (23.4-35.0) 06/19/25 13:22
Sodium 134 mmol/L (135-145) L 06/19/25 13:22
Potassium 4.3 mmol/L (3.5-5.1) 06/19/25 13:22
BUN 17 mg/dl (9-20) 06/19/25 13:22
Glucose 101 mg/dl (70-99) H 06/19/25 13:22
Calcium 9.5 mg/dl (8.4-10.2) 06/19/25 13:22
Patient Allergies
codeine Allergy (Verified 06/19/25 13:01)
nausea
Review of Systems
-
History Source: Patient
All other systems: Reviewed and negative
EENT: Negative Swallowing Difficulty
Respiratory: Negative Trouble Breathing
Cardiac: Negative Chest Pain
Abdomen/GI: Negative Incontinence of Stool
Genitourinary: Negative Incontinence
Musculoskeletal: Back Pain and Neck Pain
Neuro: Dizzy and Headache
Physical Exam
-
General: No Apparent Distress and Appears Stated Age
Eyes: OU Absent Papilledema, Round OU, [place] Conjunctivae and No Ptosis
HEENT: Anicteric and Moist Mucous Membranes
Neck: Full Range of Motion
Respiratory: No Dyspnea
Cardiac: No JVD
GI: Non-distended
Skin: Unremarkable
Extremities: No Clubbing, No Cyanosis and No Edema
Psych: Intact Judgement/Insight
Extended Neurological Exam
Mood & Affect: Mood Unremarkable and Affect Unremarkable
Attention Span & Concentration: Awake, Alert, Interactive and No Difficulty with 2 Step Request
Memory: Unremarkable
Tremor: Hand Tremor Absent and Head Tremor Absent
Speech: Quality Unremarkable and Quantity Unremarkable
Cranial Nerve II: Left Eye: Pupillary Reactivity Unremarkable, Pupillary Size Unremarkable and Visual Serra Intact
Cranial Nerve II: Right Eye: Pupillary Reactivity Unremarkable, Pupillary Size Unremarkable and Visual Serra Intact
Cranial Nerves III, IV, : Extraocular Movement: Extraocular Movement Full in all Directions
Cranial Nerve VII: Facial Symmetry: Normal Facial Symmetry
Cranial Nerve VIII: Hearing: Unremarkable Hearing to Normal Conversational Volume
Cranial Nerves IX, X: Palate Movement: Palate Elevation Symmetric
Cranial Nerve XI: Shoulder Shrug: Unremarkable
Cranial Nerve XII: Tongue Protusion: Midline
Muscle Strength, Overall: Full Throughout
Muscle Bulk & Tone: Bulk Unremarkable and Tone Unremarkable
Pronator Drift: No Drift in Upper Extremities
Deep Tendon Reflexes: Unremarkable Throughout
Touch Sensation: Unremarkable
Coordination: Ocmjod-sswd-tcllgi Testing Unremarkable
Babinski Sign: Absent Bilaterally
Data Reviewed
-
CT Head: Report Reviewed
Labs: Report Reviewed
Lipid Profile: Ordered
Reviewed with: Physician and Patient
Old Records: Summarized
Medications
-
Home Medications
�Medication �Instructions �Recorded
tamsulosin 0.4 mg capsule 0.4 mg PO HS Urinary Issue 02/21/17
acetaminophen 650 mg 1,300 mg PO Q8HPRN PRN mild pain 06/02/17
tablet,extended release (Tylenol
Arthritis Pain)
ascorbic acid (vitamin C) 500 mg 500 mg PO DAILY Supplement 06/02/17
tablet (Vitamin C)
amlodipine 10 mg tablet 10 mg PO NOON Blood Pressure 05/27/24
aspirin 81 mg chewable tablet 81 mg PO DAILY Blood Clot 05/27/24
Prevention/Tx
duloxetine 60 mg capsule,delayed 60 mg PO DAILY Depression 05/27/24
release
famotidine 20 mg tablet (Pepcid) 20 mg PO HS Gastrointestinal Issue 05/27/24
valsartan 160 mg tablet 160 mg PO BID Blood Pressure 05/27/24
atorvastatin 80 mg tablet (Lipitor) 80 mg PO QPM High Cholesterol 06/19/25
docusate sodium 100 mg capsule 100 mg PO HS Constipation 06/19/25
(Colace)
omeprazole 40 mg-sodium 1 cap PO DAILY Gastrointestinal 06/19/25
bicarbonate 1.1 gram capsule Issue
(Zegerid)
oxycodone-acetaminophen 7.5 mg-325 1 tab PO Q6HPRN PRN severe pain 06/19/25
mg tablet (Percocet)
therapeutic multivitamin 1 tab PO DAILY Supplement 06/19/25
tizanidine 4 mg tablet 4 mg PO HS Muscle Spasms 06/19/25
Past History
Past History
ED Past Medical History: Other (EtoH and opioid addiction in remission, migraine with aura, vasovagal syncope, )
ED Past Surgical History: Orthopedic (lumbar laminectomy, Right shoulder repair, left shoulder surgery) and Other (Arnold-Chiari malformation with surgical revision as well as cervical fusion, ganglion cyst)
Social History
Tobacco: Non-smoker
Alcohol: Chronic alcoholic
Drug: Former user and Narcotics
Personal:
Living: with family
Employment: Employed
Family History
Family History: CAD; Negative Diabetes, Hypertension, Early CAD, Asthma or Cancer
[2025-06-19] MEDS: COMPAZINE 10 MG PO (17:04)
[2025-06-19 17:10] VITALS: BP 158/91
--- NOTE | 2025-06-19 17:32 | HPS.HSE ---
Family Physician
-
Family Physician: Boo Diane
Chief Complaint
-
Ataxia/numbness/weakness
History of Present Illness
Mr. Becker is a 60-year-old gentleman with a past medical history of hypertension, obesity, GERD, BPH, migraine with aura, LLE radiculopathy, Chiari malformation s/p decompression 2014 with significant neurosurgical history with chronic
postsurgical sensory deficits presenting to [place] ED with headache, changes in vision, ataxia, left upper extremity lower extremity sensory deficits that started on 06/17. Patient reports that prior to 06/17 he had had some issues with
stuttering and word finding difficulties as well as lapses in memory in the 2 weeks leading up to visual changes on 06/17. He reports that main symptoms started on 06/17 with headache in the back of his head that did not feel like his migraines which
she has not had for several years and progressed to feeling numbness tingling in his left upper extremity. Patient has known numbness and the median distribution of his left upper extremity and reported complete numbness up to his elbow on
Thursday. He also reported some dizziness and nausea and took meclizine on that day which allowed him to sleep and after he woke up the numbness in his left upper extremity had decreased but he still had persistent numbness in his lower
extremities. He did not report any numbness in his abdominal area. He also reported quivering of his jaw the following day as well as multiple falls over the last 2 days without striking his head due to high degree of vertigo that is different
from his usual vertigo. He reports that his coordination has been off including spilling water on himself and balance issues. In the ED he reported no current vision changes and reported no recent illness, fevers chills/shortness of breath
vomiting but some nausea. He reported no abdominal pain constipation diarrhea or burning with urination. Head CT in the ED showed no intracranial abnormalities.
Medical History
Past Medical History
Past Medical History: Reports GERD, HTN and Other (BPH, migraine with aura, left lower extremity radiculopathy, Chiari malformation s/p decompression)
Past Surgical History: Reports Orthopedic (Right shoulder total replacement, L2-L4 laminectomy, L2-L3 fusion, L1-L2 fusion, C5-C7 fusion)
Social History
Tobacco: Former Smoker (Quit 20 years ago)
Alcohol: Occasional (2-3 beers weekly)
Drug: None
Personal:
Living: With Family
Employment: Employed
Family History
Family History: Not pertinent
Allergies / Home Medications
Allergies reflects when Allergies were last updated in [facility].
Home Medications with original date entered in [facility]
Allergy/Medication List:
Allergies
Allergy/AdvReac Type Severity Reaction Status Date / Time
codeine Allergy nausea Verified 06/19/25 13:01
Home Medications
tamsulosin 0.4 mg capsule 0.4 mg PO HS Urinary Issue 02/21/17
acetaminophen 650 mg tablet,extended release (Tylenol Arthritis Pain) 1,300 mg PO Q8HPRN PRN mild pain 06/02/17
ascorbic acid (vitamin C) 500 mg tablet (Vitamin C) 500 mg PO DAILY Supplement 06/02/17
amlodipine 10 mg tablet 10 mg PO NOON Blood Pressure 05/27/24
aspirin 81 mg chewable tablet 81 mg PO DAILY Blood Clot Prevention/Tx 05/27/24
duloxetine 60 mg capsule,delayed release 60 mg PO DAILY Depression 05/27/24
famotidine 20 mg tablet (Pepcid) 20 mg PO HS Gastrointestinal Issue 05/27/24
valsartan 160 mg tablet 160 mg PO BID Blood Pressure 05/27/24
atorvastatin 80 mg tablet (Lipitor) 80 mg PO QPM High Cholesterol 06/19/25
docusate sodium 100 mg capsule (Colace) 100 mg PO HS Constipation 06/19/25
omeprazole 40 mg-sodium bicarbonate 1.1 gram capsule (Zegerid) 1 cap PO DAILY Gastrointestinal Issue 06/19/25
oxycodone-acetaminophen 7.5 mg-325 mg tablet (Percocet) 1 tab PO Q6HPRN PRN severe pain 06/19/25
therapeutic multivitamin 1 tab PO DAILY Supplement 06/19/25
tizanidine 4 mg tablet 4 mg PO HS Muscle Spasms 06/19/25
Review of Systems
-
History Source: Patient
Constitutional: Reports See HPI
EENT: Denies Runny Nose
Respiratory: Reports See HPI; Denies Cough or Trouble Breathing
Cardiac: Reports See HPI; Denies Chest Pain or Palpitations
Abdomen/GI: Reports See HPI and Nausea; Denies Abdominal Pain, Vomiting, Diarrhea or Constipated
: Reports See HPI; Denies Dysuria
Neurological: Reports See HPI, Dizzy, Headache, Weakness and Numbness
Physical Exam
Vital Signs
Vital Signs
Temp Pulse Resp BP Pulse Ox
98 F 98 15 151/84 96
06/19/25 12:54 06/19/25 17:00 06/19/25 17:00 06/19/25 15:00 06/19/25 17:00
Physical Exam
General: Well Developed, Well Nourished, No Apparent Distress, Comfortable and Obese; No Fever or Slurred Speech
HEENT: NormoCephalic, Anicteric, Moist mucous membranes, Atraumatic, PERRLA and Hearing Impaired (Right ear)
Respiratory: Clear and Non Labored Respirations; No Wheezes or Crackles
Cardiac: S1/S2 and Regular Rhythm; No Murmur or Peripheral Edema
GI: Soft, Non Tender, Non Distended and Normal Bowel Sounds
Musculoskeletal: No Clubbing and No Edema
Skin: Warm, Dry and Lesions (Left lower extremity bruise function); No Rash
Neuro: Awake, Alert, Oriented, AO x 3 and Cranial Nerves Intact; No No Motor Deficits (Left upper extremity 4/5 biceps triceps finger abduction finger adduction, left lower extremity hip flexion knee extension 4/5), No Sensory Deficits (Left lower
extremity sensory impairment, left upper extremity fingers in the median distribution) or Facial Droop
Psych: Calm
Laboratory Results
-
06/19/25 13:22
06/19/25 13:22
Laboratory Results
APTT 26.3 Sec (23.4-35.0) 06/19/25 13:22
Total Bilirubin 0.6 mg/dl (0.2-1.3) 06/19/25 13:22
AST 37 U/L (17-59) 06/19/25 13:22
ALT 43 U/L (0-50) 06/19/25 13:22
Alkaline Phosphatase 89 U/L (38-126) 06/19/25 13:22
Impression/Plan
-
IMPRESSION:
Patient presented to this hospital's emergency department with numerous symptoms including cognitive issues in the last 2 weeks and change in headache control with worsening headaches in the last 2 days. Patient also has been reporting issues
including ataxia, numbness, dizziness.
PLAN:
#Ataxia
#Sensory deficits
#Chiari malformation
#CVA/TIA?
Eaton malformation diagnosed 2009, decompression 2014
Possible migraine
Head CT with no intracranial abnormalities
-Admit to telemetry
- MRI brain
- Echo with bubble study
- Neurology consult, appreciate recs
Check CTA head and neck to determine if there is significant stenosis producing the patient's lacunar changes in the cerebellum
check EtOH, UDS
Check echocardiogram
check blood work for treatable causes
increase Duloxetine from 60 to 90 mg due to the patient's worsening headaches
Provide thiamine
provide Prochlorperazine 10 mg as needed for headache
- follow-up TSH
#Hypertension
Continue amlodipine 10
Continue valsartan 160 twice daily
#GERD
Continue omeprazole 40 mg daily
Continue Pepcid 20 mg at bedtime
#BPH
Continue tamsulosin 0.4
#Migraine
#Headache
#Vertigo
Continue duloxetine, increased to 90 mg
Continue meclizine as needed
Continue Zofran as needed
Prochlorperazine 10 mg as needed
#Hyperlipidemia
Continue atorvastatin 80
#Left lower extremity radiculopathy
As needed Percocet
Continue duloxetine
Diet: regular
GI prophylaxis: Omeprazole
DVT prophylaxis: SCDs
CODE STATUS: DNR
[2025-06-19 17:49] LABS: HDL Cholesterol 100 mg/dl; LDL Cholesterol, Calculated 74 mg/dl; Very Low Density Lipoprotein 48 mg/dl (0-30)
[2025-06-19 17:52] LABS: C-Reactive Protein < 5.00 mg/L (0.0-10.00)
[2025-06-19] MEDS: VITAMIN B1 100 MG PO (19:00)
[2025-06-19 19:45] VITALS: BP 131/65; BMI 33.0
[2025-06-19] MEDS: TYLENOL 325 MG PO (20:53)
[2025-06-19] MEDS: ROXICODONE 7.5 MG PO (20:54)
[2025-06-19] MEDS: DIOVAN 160 MG PO (20:55)
[2025-06-19] MEDS: PEPCID 20 MG PO (20:55)
[2025-06-19] MEDS: LIPITOR 80 MG PO (20:55)
[2025-06-19] MEDS: COLACE 100 MG PO (20:56)
[2025-06-19] MEDS: ZANAFLEX 4 MG PO (20:56)
[2025-06-19] MEDS: MELATONIN 5 MG PO (20:56)
[2025-06-19] MEDS: FLOMAX 0.4 MG PO (20:56)
[2025-06-20] VITALS (8 sets, daily range): BP systolic 103–161; BP diastolic 50–93; PULSE 107
[2025-06-20] MEDS: TYLENOL 325 MG PO ×3 (08:26→20:41)
[2025-06-20] MEDS: ROXICODONE 7.5 MG PO ×3 (08:33→20:42)
[2025-06-20] MEDS: PROTONIX 40 MG PO (08:34)
[2025-06-20] MEDS: DIOVAN 160 MG PO ×2 (08:34→20:30)
[2025-06-20] MEDS: ASPIR LOW (ENTERIC COATED) 81 MG PO (08:34)
[2025-06-20] MEDS: CYMBALTA DELAYED RELEASE 60 MG PO (08:35)
[2025-06-20] MEDS: THERAGRAN 1 TABLET PO (08:35)
[2025-06-20] MEDS: VITAMIN B1 100 MG PO (08:35)
[2025-06-20] MEDS: VITAMIN C 500 MG PO (08:35)
[2025-06-20 09:07] LABS: Hematocrit 41.0 % (39.0-52.0); Hemoglobin 14.4 g/dL (13.0-18.0); Mean Corp Hgb Conc. 35.1 g/dL (33.0-37.0); Mean Corpuscular Volume 85.4 fL (80.0-94.0); Platelet Count 266 10^3/uL (130-400); Red Cell Dist. Width 13.4 % (11.5-14.5)
[2025-06-20 09:33] LABS: Blood Urea Nitrogen 14 mg/dl (9-20); Calcium 9.6 mg/dl (8.4-10.2); Carbon Dioxide 26 mmol/L (22-30); Chloride 103 mmol/L (98-107); Estimated Creatinine Clearance > 125 ml/min; Glucose 116 mg/dl (70-99); Potassium 4.1 mmol/L (3.5-5.1); Sodium 135 mmol/L (135-145); eGFR > 60.00
[2025-06-20] MEDS: NORVASC 10 MG PO (11:42)
--- NOTE | 2025-06-20 11:43 | W.PN.HOSP.TC ---
Today's Communication/Plan
-
MR brain and cervical spine pending
Echo pending
Assessment / Plan
Assessment / Plan
Mr. Becker is a 60-year-old gentleman with a past medical history of hypertension, obesity, GERD, BPH, migraine with aura, LLE radiculopathy, Chiari malformation s/p decompression 2014 with significant neurosurgical history most recently February
2024 for ACDF C5�C7 with chronic postsurgical sensory deficits presenting to [place] ED with headache, changes in vision, ataxia, left upper extremity lower extremity sensory deficits that started on 06/17. Patient reports that prior to 06/17 he
had had some issues with stuttering and word finding difficulties as well as lapses in memory in the 2 weeks leading up to visual changes on 06/17. Head CT in the ED showed no intracranial abnormalities. Neurology was consulted who recommended
echocardiogram plus CTA and patient was admitted for stroke workup. CTA showed severe cord compression with stenosis at C6/C7, and 50 to 70% stenosis of the terminal segment of the right vertebral artery. We reached out to patient's neurosurgeon
at [facility] who wanted an MRI brain plus MR cervical spine without contrast to evaluate cord compression.
#Ataxia
#Sensory deficits
#Chiari malformation
#CVA/TIA?
Eaton malformation diagnosed 2009, decompression 2014
Possible migraine
Head CT with no intracranial abnormalities
CTA head and neck showed moderate to severe spinal cord compression and central canal stenosis at C6/C7, bilateral severe neuroforaminal narrowing at C5/C6 and C6/C7, 50-70% diameter stenosis in the intracranial internal segment of the right
vertebral artery
Neurosurgeon for February [address] Michele Loaiza [facility], contacted office for further guidance about correct cord compression and recommended cervical MR
- MRI brain pending
- MRI cervical spine pending
- Echo with bubble study pending
- Neurology consult, appreciate recs
EtOH negative, UDS positive for THC and benzos
echocardiogram pending
increase Duloxetine from 60 to 90 mg due to the patient's worsening headaches
Provide thiamine
Prochlorperazine 10 mg as needed for headache
-TSH 0.78
#Hypertension
Continue amlodipine 10
Continue valsartan 160 twice daily
#GERD
Continue omeprazole 40 mg daily
Continue Pepcid 20 mg at bedtime
#BPH
Continue tamsulosin 0.4
#Migraine
#Headache
#Vertigo
Continue duloxetine, increased to 90 mg
Continue meclizine as needed
Continue Zofran as needed
Prochlorperazine 10 mg as needed
#Hyperlipidemia
Continue atorvastatin 80
Lipid panel triglyceride 242, total cholesterol 222, LDL 74, VLDL 48, HDL 100
#Left lower extremity radiculopathy
As needed Percocet
Continue duloxetine
Diet: regular
GI prophylaxis: Omeprazole
DVT prophylaxis: SCDs
CODE STATUS: DNR
Anticipated Discharge: 24 - 48 hours
Subjective/Interval History
-
Patient was seen at bedside this morning. He reports feeling better headache has reduced in pain and sensation is feeling better today in the extremities, reports no chest pain shortness of breath nausea abdominal pain. We discussed his CT and CTA
results. date of Service: June 20, 2025
Objective Data
-
Labs:
Laboratory Results
06/20/25
08:10
WBC 6.3
Hgb 14.4
Hct 41.0
Plt Count 266
Sodium 135
Potassium 4.1
Chloride 103
Carbon Dioxide 26
BUN 14
Creatinine 0.7
Glucose 116 H
Calcium 9.6
Vital Signs:
Vital Signs
Temp Pulse Resp BP Pulse Ox
98.0 F 98 18 161/93 96
06/20/25 07:50 06/20/25 07:50 06/20/25 07:50 06/20/25 07:50 06/20/25 07:50
I&O
06/19/25 06/20/25 06/21/25
06:59 06:59 06:59
Intake Total 480 / 480
Balance 480 / 480
Review of Systems
-
History Source: Patient
Constitutional: Denies Fever or Chills
EENT: Denies Runny Nose or Blurry Vision
Respiratory: Denies Cough or Trouble Breathing
Cardiac: Denies Chest Pain or Palpitations
Abdomen/GI: Denies Abdominal Pain, Nausea, Vomiting, Diarrhea or Constipated
Genitourinary: Denies Dysuria
Skin: Denies Itching or Rash
Neuro: Reports Headache (09/26), Weakness and Numbness; Denies Dizzy
Physical Exam
-
General: Well Developed, Well Nourished, No Apparent Distress, Comfortable and Obese; Negative Fever
HEENT: Normocephalic and Atraumatic
Respiratory: Clear to Auscultation and Non Labored Respirations; Negative Wheezes or Crackles
Cardiac: Regular Rhythm and S1/S2; Negative Murmur
GI: Soft, Nontender, Nondistended and Normal Bowel Sounds
Musculoskeletal: No Clubbing and No Edema
Skin: Warm and Dry
Neuro: Awake, Alert, Oriented, Central Nerve's Intact and No Sensory Deficits; Negative No Motor Deficits (4/5 LUE LLE, ) or Slurred Speech
[2025-06-20] MEDS: ATIVAN 1 MG PO (13:12)
--- NOTE | 2025-06-20 14:48 | PTCARENOTE ---
recd in department for agitated saline contrast echosonography.
Existing IV site 20 P RFA/AC.
Flushed easily.
2 separate injections performed, 1 with valsalva, under direction echosonographer.
Images obtained.
Pt tolerated all procedures well, and IV flushed at completion.
--- NOTE | 2025-06-20 15:47 | CM ---
Addendum entered by Gerda Epstein 06/20/25 15:54:
Patient VN hx [facility], not [facility]
Original Note:
CM reviewed chart, patient seen bedside, initial assessment completed.
Patient is a 60-year-old male with a medical history including Chiari I malformation (status post decompression), lumbar laminectomy and fusion, cervical fusion, and hypertension who presented with headache, vision changes, paresthesias in his left
upper lower extremities, and balance difficulties that started approximately 2 days prior to arrival.
Patient resides with his in a multiple story home, two steps to enter.
Patient is independent with ADLs/IADLS, has a walker and two canes from previous surgeries.
Patient has hx [facility], denies SNF.
PCP Boo iDane, Pharmacy [facility].
Patient discussed anxiety/stress over multiple recent health issues, CM offered support.
Patient requesting Ativan/Klonopin- discussed with Nurse.
CM will continue to follow for all d/c planning needs.
Plan; home with likely
[2025-06-20] MEDS: KLONOPIN 0.25 MG PO (15:49)
[2025-06-20] MEDS: LIPITOR 80 MG PO (17:59)
[2025-06-20] MEDS: ZANAFLEX 4 MG PO (20:30)
[2025-06-20] MEDS: COLACE 100 MG PO (20:30)
[2025-06-20] MEDS: FLOMAX 0.4 MG PO (20:31)
[2025-06-20] MEDS: PEPCID 20 MG PO (20:31)
[2025-06-20] MEDS: MELATONIN 5 MG PO (20:41)
[2025-06-21] VITALS (8 sets, daily range): BP systolic 122–155; BP diastolic 77–97
[2025-06-21] MEDS: TYLENOL 325 MG PO ×3 (06:10→18:03)
[2025-06-21] MEDS: ROXICODONE 7.5 MG PO ×3 (06:11→18:03)
[2025-06-21] MEDS: DIOVAN 160 MG PO ×2 (07:35→19:44)
[2025-06-21] MEDS: VITAMIN C 500 MG PO (07:35)
[2025-06-21] MEDS: VITAMIN B1 100 MG PO (07:35)
[2025-06-21] MEDS: PROTONIX 40 MG PO (07:36)
[2025-06-21] MEDS: ASPIR LOW (ENTERIC COATED) 81 MG PO (07:36)
[2025-06-21] MEDS: CYMBALTA DELAYED RELEASE 60 MG PO (07:36)
[2025-06-21 08:20] LABS: Hematocrit 39.6 % (39.0-52.0); Hemoglobin 14.0 g/dL (13.0-18.0); Mean Corp Hgb Conc. 35.4 g/dL (33.0-37.0); Mean Corpuscular Volume 85.9 fL (80.0-94.0); Platelet Count 248 10^3/uL (130-400); Red Cell Dist. Width 13.4 % (11.5-14.5)
[2025-06-21] MEDS: KLONOPIN 0.25 MG PO ×2 (08:51→15:13)
[2025-06-21 09:00] LABS: Blood Urea Nitrogen 16 mg/dl (9-20); Calcium 9.5 mg/dl (8.4-10.2); Carbon Dioxide 25 mmol/L (22-30); Chloride 104 mmol/L (98-107); Estimated Creatinine Clearance > 125 ml/min; Glucose 108 mg/dl (70-99); HDL Cholesterol 74 mg/dl; LDL Cholesterol, Calculated 95 mg/dl; Potassium 4.2 mmol/L (3.5-5.1); Sodium 136 mmol/L (135-145); Very Low Density Lipoprotein 40 mg/dl (0-30); eGFR > 60.00
--- NOTE | 2025-06-21 09:35 | CON.CAR ---
Addendum entered and electronically signed by Susanna Best MD 06/22/25 08:57:
Late note entry
Patient was seen and evaluated at bedside on June 21, 2025 around 5 PM
I saw and examined the patient.
The Transmission Line Engineer's note was reviewed and I agree with the note.
Comment: Briefly Felipe is a 60-year-old gentleman with past medical history of hypertension, hyperlipidemia, previous lumbar laminectomy and cervical fusions, prior history of Chiari malformation with decompression in 2015 who presents this
admission with symptoms of paresthesias, fatigue, headache and ataxia on June 19, 2025 with questionable concern for possible CVA versus atypical migraines. Brain MRI from June 20, 2025 shows large chronic ischemic infarct in the inferomedial
right cerebral hemisphere, multiple small chronic ischemic infarcts in the left cerebellar hemisphere, mild white matter leukoaraiosis in the frontal lobes, mild diffuse cerebral volume loss, tiny chronic intraparenchymal microhemorrhages in the
left cerebellar hemisphere seen on MRI. In the setting he underwent a transthoracic echocardiogram with a positive bubble study concerning for intracardiac shunting such as a PFO and therefore we are being consulted to discuss role for possible PFO
closure given concern for possible cryptogenic stroke
Vital signs and lab work reviewed. Patient is well-appearing, no acute distress, awake, alert and oriented x 3, regular rate, normal S1 and S2, no murmurs, rubs or gallops, lungs are clear to auscultation bilaterally, no JVD, abdomen is soft,
nontender, nondistended with active bowel sounds, warm extremities without significant edema.
Tele with no evidence of atrial fibrillation or atrial flutter.
Recommendations:
1. Extensive discussion was had with the patient in regards to studies related to PFO closure and cryptogenic stroke. Prior to this recommend workup to rule out any other etiologies for possible underlying stroke including a KRISTIE to define
interatrial septal anatomy better and to assess the PFO and rule out any presence of atrial septal defects. Recommend a 30-day compressed air pile driver operator to rule out any atrial fibrillation or atrial flutter that would also be a source for possible
cardioembolic strokes and warrant full anticoagulation. Also recommend workup for hypercoagulable state by checking lab work.
2. Rope score would be 5 depending on the workup above and input from neurology in regards to mechanism of the stroke being cardioembolic in nature we would discuss in a multidisciplinary fashion appropriateness of PFO closure as an outpatient.
.
Discussed all of the above with patient at bedside in extensive detail. Answered all of his questions and concerns to the best of my ability.
.
Susanna Best MD, [facility], [facility]
Original Note:
Consultation
Consultation Request
Date/Time Consultation Requested: 06/21/2025 at 0807
Date/Time Consultation Performed: 06/21/2025 at 1408
Requesting Provider: Dr. Morgan
Performing Provider: Dr. Best
Reason for Consultation: CVA and PFO
Medical History
-
History of Present Illness:
Patient came to the ER with symptoms of paresthesias, fatigue, headache and ataxia on 06/19/2025 and was admitted with concern for possible CVA and cardiology is now consulted for evidence of abnormal MRI of the brain and evidence of PFO on echo
bubble study. 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
cerebellar infarcts at that time. Patient eventually had decompression surgery in 2014 for his Chiari malformation. He has also had surgeries for lumbar disc disease and cervical disc disease. More recently patient had a lapse in memory while
driving and he briefly did not know where he was and then he had an episode where the [place] clinic where he is now working was left unlocked overnight because he forgot to lock the door when he left, these things are very out of character for him. He
has some chronic paresthesias, but then had some new paresthesias over the last 1 to 2 weeks and then starting this weekend had a headache at the base of his head and also was fatigued and the symptoms reminded him somewhat of when he was initially
diagnosed with the Chiari malformation. Patient came to the ER and MRI of the brain shows evidence of the previously identified left cerebellar infarcts, but there was also evidence of a new but overall chronic large ischemic infarct in the
inferomedial right cerebellar hemisphere. Patient was seen by neurology on 06/19/2025 and there thought at that time was possible migraine with aura, but that was before MRI results were available.
PMH:
h/o Chiari malformation with decompression in 2014
HTN
Hyperlipidemia
Previous lumbar laminectomy and cervical fusion
Past Medical History
Past Medical History: Other (In HPI)
Past Surgical History: Orthopedic and Other (Chiari malformation repair 2014)
Social History
Tobacco: Non-Smoker
Alcohol: Other (History of alcohol use disorder but in recovery for years and years)
Drug: Other (History of opioid use disorder, but in recovery for years and years)
Personal:
Living: With Family
Employment: Employed (Working as a PA for the [employer])
Family History
Family History: Cancer
Allergies / Home Medications
Allergy/AdvReac Type Severity Reaction Status Date / Time
codeine Allergy nausea Verified 06/19/25 13:01
�Medication �Instructions �Recorded �Confirmed �Type
tamsulosin 0.4 mg capsule 0.4 mg PO HS Urinary Issue 02/21/17 06/19/25 History
acetaminophen 650 mg 1,300 mg PO Q8HPRN PRN mild pain 06/02/17 06/19/25 History
tablet,extended release (Tylenol
Arthritis Pain)
ascorbic acid (vitamin C) 500 mg 500 mg PO DAILY Supplement 06/02/17 06/19/25 History
tablet (Vitamin C)
amlodipine 10 mg tablet 10 mg PO NOON Blood Pressure 05/27/24 06/19/25 History
aspirin 81 mg chewable tablet 81 mg PO DAILY Blood Clot 05/27/24 06/19/25 History
Prevention/Tx
duloxetine 60 mg capsule,delayed 60 mg PO DAILY Depression 05/27/24 06/19/25 History
release
famotidine 20 mg tablet (Pepcid) 20 mg PO HS Gastrointestinal Issue 05/27/24 06/19/25 History
valsartan 160 mg tablet 160 mg PO BID Blood Pressure 05/27/24 06/19/25 History
atorvastatin 80 mg tablet (Lipitor) 80 mg PO QPM High Cholesterol 06/19/25 06/19/25 History
docusate sodium 100 mg capsule 100 mg PO HS Constipation 06/19/25 06/19/25 History
(Colace)
meclizine PO vertigo 06/19/25 History
melatonin 5 mg PO HS Sleep 06/19/25 06/19/25 History
omeprazole 40 mg-sodium 1 cap PO DAILY Gastrointestinal 06/19/25 06/19/25 History
bicarbonate 1.1 gram capsule Issue
(Zegerid)
oxycodone-acetaminophen 7.5 mg-325 1 tab PO Q6HPRN PRN severe pain 06/19/25 06/19/25 History
mg tablet (Percocet)
therapeutic multivitamin 1 tab PO DAILY Supplement 06/19/25 06/19/25 History
tizanidine 4 mg tablet 4 mg PO HS Muscle Spasms 06/19/25 06/19/25 History
Review of Systems
-
History Source: Patient
All other systems: Negative unless noted
Physical Exam
Vital Signs
Temp Pulse Resp BP Pulse Ox
98.4 F 106 18 155/97 97
06/21/25 08:40 06/21/25 08:40 06/21/25 08:40 06/21/25 08:40 06/21/25 08:40
GEN: NAD, AAO x 3
HEENT: EOMI, MMM
LUNGS: RA. No audible wheeze.
CV: SR on telemetry
ABD: ND
EXT: No edema B/L LE
NEURO: Gross non-focal
SKIN: No rash
Lab Results
06/21/25 07:36
06/21/25 07:36
Impression / Plan
-
PCP: Dr. Diane
Cardiology: Dr. Cruz
Impression:
Admitted with paresthesias, fatigue, HASSAN and ataxia 06/19/2025
Abnormal MRI of the brain 06/20/2025
large chronic ischemic infarct in the inferomedial right cerebellar hemisphere, multiple small chronic ischemic infarcts in the left cerebellar hemisphere, mild white matter leukoaraiosis in the frontal lobes, mild diffuse cerebral volume loss,
tiny chronic intraparenchymal microhemorrhage in the left cerebellar hemisphere seen on MRI of the brain 06/20/2025
PFO seen on echo with bubble study 06/20/2025
h/o Chiari malformation with decompression in 2014
HTN
Hyperlipidemia
Previous lumbar laminectomy and cervical fusion
Echo 06/20/2025: EF 57%, normal LV size and function, no WMA, normal RV size and function, trace TR with PAP 20 mmHg, positive bubble study with likely PFO
Plan:
-Patient came to the ER with symptoms of paresthesias, fatigue, headache and ataxia on 06/19/2025 and was admitted with concern for possible CVA and cardiology is now consulted for evidence of abnormal MRI of the brain and evidence of PFO on echo
bubble study. 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
cerebellar infarcts at that time. Patient eventually had decompression surgery in 2014 for his Chiari malformation. He has also had surgeries for lumbar disc disease and cervical disc disease. More recently patient had a lapse in memory while
driving and he briefly did not know where he was and then he had an episode where the [place] clinic where he is now working was left unlocked overnight because he forgot to lock the door when he left, these things are very out of character for him. He
has some chronic paresthesias, but then had some new paresthesias over the last 1 to 2 weeks and then starting this weekend had a headache at the base of his head and also was fatigued and the symptoms reminded him somewhat of when he was initially
diagnosed with the Chiari malformation. Patient came to the ER and MRI of the brain shows evidence of the previously identified left cerebellar infarcts, but there was also evidence of a new but overall chronic large ischemic infarct in the
inferomedial right cerebellar hemisphere. Patient was seen by neurology on 06/19/2025 and there thought at that time was possible migraine with aura, but that was before MRI results were available.
-No ECG performed this admission, ordered by me 06/21/2025
-Telemetry reviewed by me no evidence of atrial arrhythmia
-Patient admitted with concerning neurologic symptoms and MRI of the brain suggests changes in the right cerebellum. Neurology is following and they do not believe the lesion is clearly cardioembolic and do not think that patient would clearly
benefit from PFO closure.
-Right cerebellar stroke could be due to right vertebral artery stenosis and there is a multidisciplinary discussion regarding treatment options including vascular surgery consultation.
-From a cardiac standpoint we will recommend a 30-day rhythm star monitor to exclude atrial arrhythmia with newly identified PFO
--- NOTE | 2025-06-21 11:07 | W.PN.HOSP.TC ---
Today's Communication/Plan
-
Echo with PFO, cardiology consult
MRI brain with multiple chronic ischemic infarcts, follow-up with patient's neurosurgeon
Assessment / Plan
Assessment / Plan
Mr. Becker is a 60-year-old gentleman with a past medical history of hypertension, obesity, GERD, BPH, migraine with aura, LLE radiculopathy, Chiari malformation s/p decompression 2014 with significant neurosurgical history most recently February
2024 for ACDF C5�C7 with chronic postsurgical sensory deficits presenting to [facility] ED with headache, changes in vision, ataxia, left upper extremity lower extremity sensory deficits that started on 06/17. Patient reports that prior to 06/17 he
had had some issues with stuttering and word finding difficulties as well as lapses in memory in the 2 weeks leading up to visual changes on 06/17. Head CT in the ED showed no intracranial abnormalities. Neurology was consulted who recommended
echocardiogram plus CTA and patient was admitted for stroke workup. CTA showed severe cord compression with stenosis at C6/C7, and 50 to 70% stenosis of the terminal segment of the right vertebral artery. We reached out to patient's neurosurgeon
at [facility] who wanted an MRI brain plus MR cervical spine without contrast to evaluate cord compression.
#Ataxia
#Sensory deficits
#Chiari malformation
# Chronic CVA
Eaton malformation diagnosed 2009, decompression 2014
Possible migraine
Head CT with no intracranial abnormalities
CTA head and neck showed moderate to severe spinal cord compression and central canal stenosis at C6/C7, bilateral severe neuroforaminal narrowing at C5/C6 and C6/C7, 50-70% diameter stenosis in the intracranial internal segment of the right
vertebral artery
Neurosurgeon for February [address] Michele Loaiza [facility], contacted office for further guidance about correct cord compression and recommended cervical MR
- MRI brain with no acute infarct, large chronic infarct in right cerebellum, small chronic infarct in left cerebellum
- MRI cervical spine showing moderate spinal cord compression at C6/C7, severe neuronal foraminal stenosis across cervical spine
-Echo with LVEF 57%, PFO present
-Cardiology consult
- Neurology consult, appreciate recs
Provide thiamine
Prochlorperazine 10 mg as needed for headache
-TSH 0.78
#Hypertension
Continue amlodipine 10
Continue valsartan 160 twice daily
#GERD
Continue omeprazole 40 mg daily
Continue Pepcid 20 mg at bedtime
#BPH
Continue tamsulosin 0.4
#Migraine
#Headache
#Vertigo
Continue duloxetine, increased to 90 mg
Continue meclizine as needed
Continue Zofran as needed
Prochlorperazine 10 mg as needed
#Hyperlipidemia
Continue atorvastatin 80
Lipid panel triglyceride 242, total cholesterol 222, LDL 74, VLDL 48, HDL 100
#Left lower extremity radiculopathy
As needed Percocet
Continue duloxetine
#Anxiety
Klonopin 0.25 as needed
Diet: regular
GI prophylaxis: Omeprazole
DVT prophylaxis: SCDs
CODE STATUS: DNR
Anticipated Discharge: 24 - 48 hours
Subjective/Interval History
-
Patient was seen this morning at bedside with family present. He reports stable headache, with no increased sensory deficits or weakness. Patient is anxious about echo MRI results. For patients of plan for today. Date of Service: June 21
2024
Objective Data
-
Labs:
Laboratory Results
06/21/25
07:36
WBC 6.2
Hgb 14.0
Hct 39.6
Plt Count 248
Sodium 136
Potassium 4.2
Chloride 104
Carbon Dioxide 25
BUN 16
Creatinine 0.7
Glucose 108 H
Calcium 9.5
Vital Signs:
Vital Signs
Temp Pulse Resp BP Pulse Ox
98.4 F 106 18 155/97 97
06/21/25 08:40 06/21/25 08:40 06/21/25 08:40 06/21/25 08:40 06/21/25 08:40
I&O
06/20/25 06/21/25 06/22/25
06:59 06:59 06:59
Intake Total 480 / 480 900 / 900
Balance 480 / 480 900 / 900
Review of Systems
-
History Source: Patient and Family
Constitutional: Reports Weakness; Denies Fever or Chills
EENT: Denies Runny Nose
Respiratory: Denies Cough or Trouble Breathing
Cardiac: Denies Chest Pain or Palpitations
Abdomen/GI: Denies Abdominal Pain, Nausea, Vomiting, Diarrhea or Constipated
Genitourinary: Denies Dysuria
Neuro: Reports Headache (2/10) and Weakness (Left upper lower extremity); Denies Numbness
Psych: Reports Anxious
Physical Exam
-
General: Well Developed, Well Nourished, No Apparent Distress, Comfortable and Obese; Negative Fever
HEENT: Normocephalic, Atraumatic and Moist Mucous Membranes
Respiratory: Clear to Auscultation and Non Labored Respirations; Negative Wheezes or Crackles
Cardiac: Regular Rhythm, S1/S2 and Tachycardic; Negative Murmur
GI: Soft, Nontender, Nondistended and Normal Bowel Sounds
Musculoskeletal: No Clubbing and No Edema
Skin: Warm and Dry
Neuro: Awake, Alert and Oriented; Negative No Motor Deficits (4/5 left upper extremity lower extremity) or No Sensory Deficits (Left arm median nerve distribution)
[2025-06-21] MEDS: TYLENOL 650 MG PO (11:29)
[2025-06-21] MEDS: NORVASC 10 MG PO (12:11)
--- NOTE | 2025-06-21 15:54 | W.PN.NEURO.1 ---
Today's Communication / Plan
-
Appreciate cardiology evaluation for PFO. From a neurological perspective it is not clear the patient would benefit from PFO closure based on 1 left cerebellar lesion, with the other being explainable by arterial stenosis
As the patient continues to have an LDL greater than 70 while on high-dose atorvastatin, would add Ezetimibe to reduce risk. Recheck lipid levels in 3 months after starting this medication
Patient should be maintained on aspirin lifelong
Increased duloxetine from 60 to 90 mg due to the patient's worsening headaches
Patient will require neurosurgical evaluation as an outpatient due to significant spinal stenosis
Provide thiamine
provide Prochlorperazine 10 mg as needed for headache
Neuro Assessment/Plan
Assessment
Patient presented to this hospital's emergency department with numerous symptoms including cognitive issues in the last 2 weeks and change in headache control with worsening headaches in the last 2 days. Patient also has been reporting issues
including ataxia, numbness, dizziness.
Most likely in light of the patient's prior history of functional neurological disorder in 2017, the symptoms most likely represent migraine with aura and possible somatic overlay.
Presence of lacunar changes in the cerebellum bilaterally may represent prior ischemic injury.
MRI of brain does demonstrate a prior right cerebellar chronic ischemic stroke most likely due to the presence of the accompanying right cerebellar artery stenosis. The left cerebellar lacunar stroke is lacunar and may not represent a cardioembolic
event although this is unclear there are no other intracranial lesions which would also suggest the possibility of high risk for cardioembolic events in the future.
Echocardiogram suggested a patent foramen ovale
Plan
Appreciate cardiology evaluation for PFO. From a neurological perspective it is not clear the patient would benefit from PFO closure based on 1 left cerebellar lesion, with the other being explainable by arterial stenosis
As the patient continues to have an LDL greater than 70 while on high-dose atorvastatin, would add Ezetimibe to reduce risk. Recheck lipid levels in 3 months after starting this medication
Patient should be maintained on aspirin lifelong
Increased duloxetine from 60 to 90 mg due to the patient's worsening headaches
Patient will require neurosurgical evaluation as an outpatient due to significant spinal stenosis
Provide thiamine
provide Prochlorperazine 10 mg as needed for headache
Will follow as needed
Subjective/Objective
Subjective Data
Date of Service: June 21, 2025
Objective Data
Vital Signs
Temp Pulse Resp BP Pulse Ox
36.6 C 91 18 154/93 97
06/21/25 11:45 06/21/25 11:45 06/21/25 11:45 06/21/25 11:45 06/21/25 11:45
Lab Results
06/21/25 07:36
06/21/25 07:36
APTT 26.3 Sec (23.4-35.0) 06/19/25 13:22
Sodium 136 mmol/L (135-145) 06/21/25 07:36
Potassium 4.2 mmol/L (3.5-5.1) 06/21/25 07:36
BUN 16 mg/dl (9-20) 06/21/25 07:36
Glucose 108 mg/dl (70-99) H 06/21/25 07:36
Calcium 9.5 mg/dl (8.4-10.2) 06/21/25 07:36
LDL Cholesterol, Calc 95 mg/dl 06/21/25 07:36
Ur Buprenorphine Negative (Negative) 06/19/25 17:06
Patient Allergies
codeine Allergy (Verified 06/19/25 13:01)
nausea
Data Reviewed
-
MRI Cervical Spine: Report Reviewed and Image Reviewed
Labs: Report Reviewed
Reviewed with: Physician and Physician Performance Improvement Coordinator
Old Records: Summarized
Past History
Past History
ED Past Medical History: Other (EtoH and opioid addiction in remission, migraine with aura, vasovagal syncope)
ED Past Surgical History: Orthopedic (lumbar laminectomy, Right shoulder repair, left shoulder surgery) and Other (Arnold-Chiari malformation with surgical revision, cervical fusion, ganglion cyst)
Social History
Tobacco: Non-smoker
Alcohol: Chronic alcoholic
Drug: Former user and Narcotics
Personal:
Living: with family
Employment: Employed
Family History
Family History: CAD; Negative Diabetes, Hypertension, Early CAD, Asthma or Cancer
Medications
-
Medications:
Generic Name Dose Route Start Last Admin
Trade Name Freq PRN Reason Stop Dose Admin
Acetaminophen 650 mg 06/19/25 20:00 06/21/25 11:29
Acetaminophen 325 Mg Tablet PO 07/17/25 19:59 650 mg
Q4HPRN PRN Administration
MILD PAIN
Acetaminophen 325 mg 06/19/25 20:38 06/21/25 12:11
Acetaminophen 325 Mg Tablet PO 07/17/25 20:37 325 mg
Q6HPRN PRN Administration
WITH OXYCODONE
Amlodipine Besylate 10 mg 06/20/25 12:00 06/21/25 12:11
Amlodipine 10 Mg Tablet PO 07/18/25 11:59 10 mg
NOON ANTONINA Administration
Ascorbic Acid 500 mg 06/20/25 08:00 06/21/25 07:35
Ascorbic Acid 500 Mg Tablet PO 07/18/25 07:59 500 mg
DAILY ANTONINA Administration
Aspirin 81 mg 06/20/25 08:00 06/21/25 07:36
Aspirin 81 Mg (Enteric Coated) Tablet PO 07/18/25 07:59 81 mg
DAILY ANTONINA Administration
Atorvastatin Calcium 80 mg 06/19/25 19:00 06/20/25 17:59
Atorvastatin (Lipitor) 80 Mg Tablet PO 07/17/25 18:59 80 mg
QPM ANTONINA Administration
Bisacodyl 10 mg 06/19/25 19:00
Bisacodyl 10 Mg Rectal Suppository RECTAL 07/17/25 18:59
[id number] PRN
constipation
Clonazepam 0.25 mg 06/21/25 08:09 06/21/25 15:13
Clonazepam 0.25 Mg Dose PO 07/19/25 08:08 0.25 mg
Q4HPRN PRN Administration
anxiety
Docusate Sodium 100 mg 06/19/25 22:00 06/20/25 20:30
Docusate Sodium 100 Mg Capsule PO 07/17/25 21:59 100 mg
HS ANTONINA Administration
Duloxetine HCl 60 mg 06/20/25 08:00 06/21/25 07:36
Duloxetine Delayed Release 60 Mg Capsule PO 07/18/25 07:59 60 mg
DAILY ANTONINA Administration
Famotidine 20 mg 06/19/25 22:00 06/20/25 20:31
Famotidine 20 Mg Tablet PO 07/17/25 21:59 20 mg
HS ANTONINA Administration
Meclizine HCl 25 mg 06/19/25 20:37
Meclizine 25 Mg Tablet PO 07/17/25 20:36
TIDPRN PRN
dizziness
Melatonin 5 mg 06/19/25 20:36 06/20/25 20:41
Melatonin 5 Mg Tablet PO 07/17/25 20:35 5 mg
HSPRN PRN Administration
insomnia
Oxycodone HCl 7.5 mg 06/19/25 20:38 06/21/25 12:10
Oxycodone 5 Mg Regular Release Tablet PO 07/03/25 20:37 7.5 mg
Q6HPRN PRN Administration
SEVERE PAIN
Pantoprazole Sodium 40 mg 06/20/25 08:00 06/21/25 07:36
Pantoprazole 40 Mg Delayed Release Tablet PO 07/18/25 07:59 40 mg
DAILY ANTONINA Administration
Polyethylene Glycol 17 grams 06/19/25 19:00
Polyethylene Glycol Powder 17 Grams Packet PO 07/17/25 18:59
DAILYPRN PRN
constipation
Senna/Docusate Sodium 1 tablet 06/19/25 19:00
Docusate W/Senna (Shea-Colace) Tablet PO 07/17/25 18:59
BIDPRN PRN
constipation
Sodium Chloride 0 flush 06/19/25 20:00
Sodium Chloride 0.9% (Flush) Syringe IV 07/17/25 19:59
PER PROTOCOL ANTONINA
Tamsulosin HCl 0.4 mg 06/19/25 22:00 06/20/25 20:31
Tamsulosin 0.4 Mg Capsule PO 07/17/25 21:59 0.4 mg
HS ANTONINA Administration
Tizanidine HCl 4 mg 06/19/25 22:00 06/20/25 20:30
Tizanidine 4 Mg Tablet PO 07/17/25 21:59 4 mg
HS ANTONINA Administration
Valsartan 160 mg 06/19/25 20:00 06/21/25 07:35
Valsartan 160 Mg Tablet PO 07/17/25 19:59 160 mg
BID ANTONINA Administration
[2025-06-21] MEDS: LIPITOR 80 MG PO (17:33)
[2025-06-21] MEDS: ZANAFLEX 4 MG PO (22:05)
[2025-06-21] MEDS: FLOMAX 0.4 MG PO (22:05)
[2025-06-21] MEDS: COLACE 100 MG PO (22:06)
[2025-06-21] MEDS: PEPCID 20 MG PO (22:06)
[2025-06-22] MEDS: TYLENOL 325 MG PO (01:47)
[2025-06-22] MEDS: ROXICODONE 7.5 MG PO ×3 (01:48→16:19)
[2025-06-22 03:00] VITALS: BP 137/72
[2025-06-22] MEDS: PROTONIX 40 MG PO (07:51)
[2025-06-22] MEDS: ASPIR LOW (ENTERIC COATED) 81 MG PO (07:51)
[2025-06-22] MEDS: CYMBALTA DELAYED RELEASE 90 MG PO (07:51)
[2025-06-22] MEDS: DIOVAN 160 MG PO (07:51)
[2025-06-22] MEDS: VITAMIN C 500 MG PO (07:51)
[2025-06-22] MEDS: KLONOPIN 0.25 MG PO (07:51)
[2025-06-22 08:32] VITALS: BP 144/87
[2025-06-22 08:43] LABS: Hematocrit 39.6 % (39.0-52.0); Hemoglobin 13.5 g/dL (13.0-18.0); Mean Corp Hgb Conc. 34.1 g/dL (33.0-37.0); Mean Corpuscular Volume 87.0 fL (80.0-94.0); Platelet Count 238 10^3/uL (130-400); Red Cell Dist. Width 13.4 % (11.5-14.5)
[2025-06-22] MEDS: TYLENOL 650 MG PO ×2 (09:13→16:17)
--- NOTE | 2025-06-22 09:27 | W.PN.HOSP.TC ---
Today's Communication/Plan
-
Start ezetimibe
KRISTIE
Dispo planning
Assessment / Plan
Assessment / Plan
Mr. Becekr is a 60-year-old gentleman with a past medical history of hypertension, obesity, GERD, BPH, migraine with aura, LLE radiculopathy, Chiari malformation s/p decompression 2014 with significant neurosurgical history most recently February
2024 for ACDF C5�C7 with chronic postsurgical sensory deficits presenting to [place] ED with headache, changes in vision, ataxia, left upper extremity lower extremity sensory deficits that started on 06/17. Patient reports that prior to 06/17 he
had had some issues with stuttering and word finding difficulties as well as lapses in memory in the 2 weeks leading up to visual changes on 06/17. Head CT in the ED showed no intracranial abnormalities. Neurology was consulted who recommended
echocardiogram plus CTA and patient was admitted for stroke workup. CTA showed severe cord compression with stenosis at C6/C7, and 50 to 70% stenosis of the terminal segment of the right vertebral artery and backing off of compression plate. We
reached out to patient's neurosurgeon at [facility] who wanted an MRI brain plus MR cervical spine without contrast to evaluate cord compression. MRI brain was notable for with no acute infarct, large chronic infarct in right cerebellum, small chronic
infarcts in left cerebllum, MRI cervical spine showing moderate spinal cord compression at C6/C7, severe neuronal foraminal stenosis across cervical spine, 6 mm chronic infarct in the shayy. Patient also current echo which showed LVEF 57% and
presence of PFO. Cardiology was consulted for possible PFO closure, they recommended KRISTIE with monitor for arrhythmia for 30 days.
#Ataxia
#Sensory deficits
#Chiari malformation
# Chronic CVA
Eaton malformation diagnosed 2009, decompression 2014
Possible migraine
Head CT with no intracranial abnormalities
CTA head and neck showed moderate to severe spinal cord compression and central canal stenosis at C6/C7, bilateral severe neuroforaminal narrowing at C5/C6 and C6/C7, 50-70% diameter stenosis in the intracranial internal segment of the right
vertebral artery, compression plate 'backing off' the anterior cortex of the vertebral bodies
Neurosurgeon for February [address] Michele YEE, contacted office for further guidance about correct cord compression and recommended cervical MR
- MRI brain with no acute infarct, large chronic infarct in right cerebellum, small chronic infarcts in left cerebellum
- MRI cervical spine showing moderate spinal cord compression at C6/C7, severe neuronal foraminal stenosis across cervical spine, 6 mm chronic infarct in the shayy.
- Echo with LVEF 57%, PFO present
- Cardiology consult, appreciate rec
-KRISTIE to define interatrial septal anatomy better and to assess the PFO
- Neurology consult, appreciate recs
Provide thiamine
Prochlorperazine 10 mg as needed for headache
Addition of ezetimibe for LDL less than 70
Daily aspirin
-TSH 0.78
#Hypertension
Continue amlodipine 10
Continue valsartan 160 twice daily
#GERD
Continue omeprazole 40 mg daily
Continue Pepcid 20 mg at bedtime
#BPH
Continue tamsulosin 0.4
#Migraine
#Headache
#Vertigo
Continue duloxetine, increased to 90 mg
Continue meclizine as needed
Continue Zofran as needed
Prochlorperazine 10 mg as needed
#Hyperlipidemia
Goal LDL less than 70
Continue atorvastatin 80
Start ezetimibe 10 mg
Lipid panel triglyceride 242, total cholesterol 222, LDL 74, VLDL 48, HDL 100
#Left lower extremity radiculopathy
As needed Percocet
Continue duloxetine
#Anxiety
Klonopin 0.25 as needed
Diet: regular
GI prophylaxis: Omeprazole
DVT prophylaxis: SCDs
CODE STATUS: DNR
Anticipated Discharge: Within 24 hours
Subjective/Interval History
-
Patient was seen at bedside. Reports feeling about the same with no new changes. No fever or shortness of breath chest pain palpitations. Patient upset about neurological consult and set up second opinion with outside neurologist. Date of
Service: June 22, 2025
Objective Data
-
Labs:
Laboratory Results
06/21/25 06/22/25
17:13 07:53
WBC 5.5
Hgb 13.5
Hct 39.6
Plt Count 238
PT Cancelled
INR Cancelled
APTT Cancelled
Sodium Pending
Potassium Pending
Chloride Pending
Carbon Dioxide Pending
BUN Pending
Creatinine Pending
Glucose Pending
Calcium Pending
Vital Signs:
Vital Signs
Temp Pulse Resp BP Pulse Ox
98.3 F 73 16 144/87 96
06/22/25 08:32 06/22/25 08:32 06/22/25 08:32 06/22/25 08:32 06/22/25 08:32
I&O
06/21/25 06/22/25 06/23/25
06:59 06:59 06:59
Intake Total 900 / 900
Balance 900 / 900
Review of Systems
-
History Source: Patient
Constitutional: Denies Fever or Chills
EENT: Denies Runny Nose
Respiratory: Denies Cough, Hemoptysis or Trouble Breathing
Cardiac: Denies Chest Pain or Palpitations
Abdomen/GI: Denies Abdominal Pain, Nausea, Vomiting, Diarrhea or Constipated
Genitourinary: Denies Dysuria
Musculoskeletal: Denies Joint Pain
Skin: Denies Itching
Neuro: Reports Ataxia; Denies Numbness
Physical Exam
-
General: Well Developed, Well Nourished, No Apparent Distress, Comfortable and Obese; Negative Fever
HEENT: Normocephalic and Atraumatic
Respiratory: Clear to Auscultation and Non Labored Respirations; Negative Wheezes or Crackles
Cardiac: Regular Rhythm and S1/S2; Negative Murmur
GI: Soft, Nontender, Nondistended and Normal Bowel Sounds
Musculoskeletal: No Clubbing and No Edema
Skin: Warm and Dry
Neuro: Awake, Alert, Oriented, No Motor Deficits (4/5 LUE LLE), Central Nerve's Intact and No Sensory Deficits; Negative Slurred Speech
[2025-06-22 09:48] LABS: Blood Urea Nitrogen 16 mg/dl (9-20); Calcium 9.3 mg/dl (8.4-10.2); Carbon Dioxide 28 mmol/L (22-30); Chloride 104 mmol/L (98-107); Estimated Creatinine Clearance > 125 ml/min; Glucose 98 mg/dl (70-99); Potassium 4.2 mmol/L (3.5-5.1); Sodium 136 mmol/L (135-145); eGFR > 60.00
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
[2025-06-22] MEDS: NORVASC 10 MG PO (13:31)
[2025-06-22 15:23] VITALS: BP 156/90
--- NOTE | 2025-06-22 15:47 | CM ---
CM reviewed chart, patient seen bedside with , for d/c today.
Patient requesting return to work note, update to Resident.
Script for outpatient PT/OT provided to nurse.
Patient brett transportation home.
CM will continue to follow for all d/c planning needs.
Plan; home with script for outpatient therapy
--- NOTE | 2025-06-22 15:59 | W.DCSUMMARY ---
Discharge Summary
Discharge Data
Date of Admission: 06/19/25
Date of Discharge: 06/22/25
-
Pending Results: No
Hospital Course
Discharging Physician :
Dr. Morgan
Dr. Nair
Disposition :
Home w/ OP PT/OT
Primary care physician :
Boo Diane
Principal Discharge diagnosis :
Recrudescence of chronic CVA, cervical central canal stenosis
Chronic Discharge diagnosis :
GERD
Essential HTN
BPH
migraine with aura
left lower extremity radiculopathy
Chiari I malformation s/p decompression
Hospital Course :
Mr. Becker is a 60-year-old gentleman with a past medical history of hypertension, obesity, GERD, BPH, migraine with aura, LLE radiculopathy, Chiari malformation s/p decompression 2014 with significant neurosurgical history most recently February
2024 for ACDF C5�C7 with chronic postsurgical sensory deficits presented to [place] ED with headache, changes in vision, ataxia, left upper extremity lower extremity sensory deficits that started on 06/17. Patient reports that prior to 06/17 he
had had some issues with stuttering and word finding difficulties as well as lapses in memory in the 2 weeks leading up to visual changes on 06/17. Head CT in the ED showed no intracranial abnormalities. Neurology was consulted who recommended
echocardiogram plus CTA and patient was admitted for stroke workup. CTA showed severe cord compression with stenosis at C6/C7, and 50 to 70% stenosis of the terminal segment of the right vertebral artery and backing off of compression plate. We
reached out to patient's neurosurgeon at [facility] who recommended an MRI brain plus MR cervical spine without contrast to evaluate cord compression. MRI brain was notable for with no acute infarct, large chronic infarct in right cerebellum, small chronic
infarcts in left cerebllum, MRI cervical spine showing moderate spinal cord compression at C6/C7, severe neuronal foraminal stenosis across cervical spine, 6 mm chronic infarct in the shayy. Echo showed LVEF 57% and presence of PFO. Cardiology was
consulted for possible PFO closure, they recommended EKG which showed normal sinus rhythm, KRISTIE showed PFO with [id number] shunt and planned for long-term quality assurance monitor body for 30 days. Patient was started on secondary prophylaxis with ezetimibe
and aspirin and encouraged to follow-up outpatient for cervical canal stenosis. At discharge patient was AFVSS.
Important imaging findings :
Head CT 06/19/2025:
IMPRESSION:
No acute intracranial abnormality noted.
Head and neck CTA 06/19/2025:
IMPRESSION:
NECK CTA:
1. Less than 50% diameter stenosis in both proximal ICAs.
2. No CTA evidence for stenosis in either vertebral artery.
3. Previous anterior discectomy and fusion at C5/C6 and C6/C7 with the inferior aspect of the compression plate 'backing off' the anterior cortex of the vertebral bodies.
4. MODERATE to SEVERE SPINAL CORD COMPRESSION and central canal stenosis at C6/C7.
5. Severe bilateral neural foraminal narrowing at C5/C6 and C6/C7.
HEAD CTA:
1. Moderate-sized chronic infarct in the inferomedial right cerebellar hemisphere with associated encephalomalacia.
2. Small chronic infarcts in the left cerebellar hemisphere.
3. Previous suboccipital craniotomy for treatment of a Chiari I malformation.
4. 50-70% diameter stenosis in the intracranial internal segment of the right vertebral artery.
5. 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
6. No CTA evidence for large vessel arterial stenosis or occlusion in the anterior circulation.
06/20/2025 cervical spine MRI:
IMPRESSION:
1. Moderate to large right central disc-osteophyte complex at C6/C7 causing MODERATE SPINAL CORD COMPRESSION and CENTRAL CANAL STENOSIS.
2. Small right central disc herniation at C5/C6 causing mild spinal cord compression and central canal stenosis.
3. Severe bilateral neural foraminal narrowing at C5/C6 and C6/C7.
4. Severe right neural foraminal narrowing at C3/C4 and C4/C5.
5. Previous anterior discectomy and fusion at C5/C6 and C6/C7.
6. Moderate to large chronic ischemic infarct in the inferomedial right cerebellar hemisphere.
7. Multiple small chronic ischemic infarcts in the left cerebellar hemisphere.
8. Small 6 mm chronic ischemic infarct in the shayy.
9. Previous suboccipital craniotomy for treatment of a Chiari I malformation.
06/20/2025 brain MRI:
IMPRESSION:
1. No MRI evidence for acute infarct.
2. Large chronic ischemic infarct in the inferomedial right cerebellar hemisphere.
3. Multiple small chronic ischemic infarcts in the left cerebellar hemisphere.
4. Previous suboccipital craniotomy for treatment of a Chiari I malformation.
5. Mild white matter leukoaraiosis in the frontal lobes.
6. Mild diffuse cerebral volume loss.
7. Tiny chronic intraparenchymal microhemorrhage in the left cerebellar hemisphere.
8. Small disc herniations at C2/C3 and C3/C4 causing mild spinal cord compression.
Procedure findings :
06/20/2025 echocardiogram:
SUMMARY
1. Ejection fraction is 57% by volumetric assesment.
2. Normal left ventricular size, wall thickness and systolic function. No regional wall motion abnormalities are seen.
3. Right ventricular size and systolic function are within normal limits.
4. Trace tricuspid regurgitation. Estimated pulmonary artery pressure of 20 mmHg assuming a right atrial pressure of 3 mmHg.
5. Positive bubble study. Likely patent foramen ovale present, seen by color flow doppler and agitated saline injection.
6. Compared to a prior transthoracic echocardiogram study from 03/04/2010 A patent foramen ovale is present on the study via bubble study. This was not assessed on the previous transthoracic echo.
06/21/2025 EKG:
NORMAL SINUS RHYTHM WITH SINUS ARRHYTHMIA
NONSPECIFIC T WAVE ABNORMALITY
ABNORMAL ECG
WHEN COMPARED WITH ECG OF 26-May-2024 23:18,
MINIMAL CRITERIA FOR INFERIOR INFARCT ARE NO LONGER PRESENT
Discharge Plan
-
Patient Disposition: Home (Routine Discharge)
Discharge Diagnosis/Procedures: Recrudescence of chronic CVA, central canal stenosis
Condition: Fair
Diet: Low Sodium
Activity: As tolerated
Driving Restrictions: As prior to admission
Bathing Restrictions: None
Other Services: PT and OT
Stand Alone Forms: Return to Work
Referrals:
Boo Diane DO [Family Provider, Internal Medicine] - in less than 1 week
Susanna Best MD [Active, Cardiology] - 08/03/25 2:00 pm
Referral Note: You have a cardiology follow-up appointment at the [place] office. Please call with questions
Additional Discharge Medication Instructions: Follow up with neurosurgery and neurology
Prescriptions:
New
ezetimibe 10 mg Tablet
10 mg PO HS Qty: 30 0RF
duloxetine 30 mg Capsule,Delayed Release(Dr/Ec)
90 mg PO DAILY Qty: 90 0RF
Continued
tamsulosin 0.4 MG capsule
0.4 mg PO HS
acetaminophen [Tylenol Arthritis Pain] 650 MG tablet extended release
1,300 mg PO Q8HPRN PRN (Reason: mild pain)
ascorbic acid (vitamin C) [Vitamin C] 500 MG tablet
500 mg PO DAILY
famotidine [Pepcid] 20 mg Tablet
20 mg PO HS
amlodipine 10 mg Tablet
10 mg PO NOON
aspirin 81 mg Tablet,Chewable
81 mg PO DAILY
valsartan 160 mg Tablet
160 mg PO BID
atorvastatin [Lipitor] 80 mg Tablet
80 mg PO QPM
tizanidine 4 mg Tablet
4 mg PO HS
therapeutic multivitamin Tablet
1 tab PO DAILY
oxycodone-acetaminophen [Percocet] 7.5-325 mg Tablet
1 tab PO Q6HPRN PRN (Reason: severe pain)
omeprazole-sodium bicarbonate [Zegerid] 40-1.1 mg-gram Capsule
1 cap PO DAILY
docusate sodium [Colace] 100 mg Capsule
100 mg PO HS
melatonin 5 mg
5 mg PO HS
meclizine 25 mg
PO
Rx Instructions:
1-2 tabs TID PRN
Discontinued
duloxetine 60 mg Capsule,Delayed Release(Dr/Ec)
60 mg PO DAILY
Discharge Orders:
Discharge Patient (As Directed); Ordered 06/22/25
Ordered By: Dewayne Nair
Discharge Date and Time
Print Language: GREENLANDIC
[2025-06-24 03:00] LABS: Phosphatidylserine Ab, IgA 0 APS (0-19); Phosphatidylserine Ab, IgG 0 GPS (0-15); Phosphatidylserine Ab, IgM 1 MPS (0-21)
[2025-06-24 08:08] LABS: Beta-2-Glycoprotein I Ab. IgA <10 SAU (<=20); Beta-2-Glycoprotein I Ab. IgG <10 SGU (<=20); Beta-2-Glycoprotein I Ab. IgM <10 SMU (<=20)
== END 2025-06-22 16:55 | disposition home or self-care (01) | DRG 552 ==
LOC: 4 WEST ACU 18:15
PROVIDERS: Emergency Medicine; Internal Medicine Cardiovascular Disease; Physician Assistant Medical; Student in an Organized Health Care Education/Training Program; ADMITTING PHYSICIAN Internal Medicine; CONSULT PHYSICIAN Psychiatry & Neurology Neurology; EMERGENCY PHYSICIAN Emergency Medicine; FAMILY PHYSICIAN Internal Medicine; OTHER PHYSICIAN Internal Medicine Interventional Cardiology
PROC: B24BZZ4 Ultrasonography of Heart with Aorta, Transesophageal (ICD-10-PCS; 2025-06-22)
DX: M48.02 Spinal stenosis, cervical region (principal); M50.022 Cervical disc disorder at C5-C6 level with myelopathy; Q21.12 Patent foramen ovale; Z86.73 Personal history of transient ischemic attack (TIA), and cerebral infarction without residual deficits; Z66 Do not resuscitate; I10 Essential (primary) hypertension; G43.109 Migraine with aura, not intractable, without status migrainosus; K21.9 Gastro-esophageal reflux disease without esophagitis; N40.0 Benign prostatic hyperplasia without lower urinary tract symptoms; Z87.891 Personal history of nicotine dependence; Z88.5 Allergy status to narcotic agent; Z79.82 Long term (current) use of aspirin; R27.0 Ataxia, unspecified; E78.00 Pure hypercholesterolemia, unspecified; E66.9 Obesity, unspecified; Z68.33 Body mass index [BMI] 33.0-33.9, adult; F11.21 Opioid dependence, in remission; H53.2 Diplopia; Z98.1 Arthrodesis status; Z79.899 Other long term (current) drug therapy
CPT/HCPCS: 70450; 70496; 70498; 70551; 72141; 80048; 80053; 80061; 80306; 80307; 82077; 84443; 85025; 85027; 85302; 85305; 85610; 85613; 85652; 85730; 86140; 86146; 86147; 86148; 93005; 93306; 93312; 93320; 93325; 97163; 97166; 99285; Q9967